=== PATIENT | female | born 1935 | race Caucasian/White ===

== ENCOUNTER → 2016-11-30 | Outpatient (CLI) | payer MEDICARE, OTHER ==
[2016-11-30 09:30] LABS: ABSOLUTE EOSINOPHILS # (AUTO) 0.3 10^3/uL (0.0-0.6); ABSOLUTE LYMPHOCYTES (AUTO) 1.6 10^3/uL (0.5-4.7); ABSOLUTE MONOCYTES (AUTO) 0.4 10^3/uL (0.1-1.4); ABSOLUTE NEUT (AUTO) 4.5 10^3/uL (1.7-8.2); BASOPHILS % (AUTO) 0.4 % (0-2); EOSINOPHILS % (AUTO) 3.8 % (0-6); HEMATOCRIT 41.7 % (36.0-47.0); HGB HCT DIFFERENCE 0.3; LYMPHOCYTES % (AUTO) 23.7 % (13-45); MEAN CORPUSCULAR HEMOGLOBIN 31.9 pg (27.0-33.4); MEAN CORPUSCULAR HGB CONC 33.6 g/dL (32.0-36.0); MEAN CORPUSCULAR VOLUME 95 fl (80-97); MONOCYTES % (AUTO) 5.7 % (3-13); RED CELL DISTRIBUTION WIDTH 12.5 % (11.5-14.0); SEGMENTED NEUTROPHILS % (AUTO) 66.4 % (42-78); WHITE BLOOD COUNT 6.7 10^3/uL (4.0-10.5)
[2016-11-30 09:52] LABS: ALANINE AMINOTRANSFERASE 26 U/L (9-52); ALBUMIN 4.3 g/dL (3.5-5.0); ALKALINE PHOSPHATASE 91 U/L (38-126); ANION GAP 12 (5-19); ASPARTATE AMINO TRANSFERASE 21 U/L (14-36); BLOOD UREA NITROGEN 17 mg/dL (7-20); CALCIUM 9.5 mg/dL (8.4-10.2); CARBON DIOXIDE 31 mmol/L (22-30); CHLORIDE 99 mmol/L (98-107); CREATININE RESULT 0.96 mg/dL (0.52-1.25); GLUCOSE 217 mg/dL (75-110); POTASSIUM 4.2 mmol/L (3.6-5.0); SODIUM 142.4 mmol/L (137-145)
[2016-11-30 09:53] LABS: BILIRUBIN,TOTAL 0.9 mg/dL (0.2-1.3); CHOLESTEROL 204.63 mg/dL (0-200); Direct HDL 83 mg/dL (>40); TOTAL PROTEIN 7.3 g/dL (6.3-8.2); TRIGLYCERIDES 148 mg/dL (<150)
[2016-11-30 10:04] LABS: DIRECT LDL 104 mg/dL (<100)
== END ==
LOC: OD 08:07
PROVIDERS: ATTEND Internal Medicine
DX: E11.9 Type 2 diabetes mellitus without complications (principal); I10 Essential (primary) hypertension; I25.10 Atherosclerotic heart disease of native coronary artery without angina pectoris; E03.9 Hypothyroidism, unspecified; E78.5 Hyperlipidemia, unspecified
CPT/HCPCS: 36415; 80053; 80061; 83036; 84443; 85025

== ENCOUNTER 2016-12-12 08:07 | Emergency (ER) | payer MEDICARE, OTHER ==
--- NOTE | 2016-12-12 08:46 | ER Document Report ---
ED General - General Chief Complaint: Weakness Stated Complaint: WEAKNESS Mode of Arrival: Wheelchair Information source: Patient, Relative Notes: 81 yr old female presents with complaints of generalized weakness, chills and cough over the past 3 days. Grandson had URI, pt notes she feels weak and fell 2 days ago. denies any fevers TRAVEL OUTSIDE OF THE [place] IN LAST 30 DAYS: No - HPI Onset: Last week Onset/Duration: Persistent Quality of pain: No pain Severity: Mild Pain Level: Denies Associated symptoms: Body/muscle aches, Chills, Nonproductive cough Exacerbated by: Denies Relieved by: Denies Similar symptoms previously: No Recently seen / treated by doctor: No - Related Data Allergies/Adverse Reactions: codeine [Codeine] Allergy (Verified 12/12/16 08:20) levofloxacin [From Levaquin] Allergy (Verified 12/12/16 08:20) Sulfa (Sulfonamide Antibiotics) Allergy (Verified 12/12/16 08:20) Past Medical History - Social History Smoking Status: Never Smoker Cigarette use (# per day): No Chew tobacco use (# tins/day): No Smoking Education Provided: No Frequency of alcohol use: None Drug Abuse: None Family History: Reviewed & Not Pertinent Patient has suicidal ideation: No Patient has homicidal ideation: No - Past Medical History Cardiac Medical History: Reports: Hx Hypercholesterolemia, Hx Hypertension Endocrine Medical History: Reports: Hx Diabetes Mellitus Type 2 Renal/ Medical History: Denies: Hx Peritoneal Dialysis GI Medical History: Reports: Hx Gastroesophageal Reflux Disease Past Surgical History: Reports: Hx Appendectomy, Hx Cholecystectomy, Hx Hysterectomy - Immunizations Hx Diphtheria, Pertussis, Tetanus Vaccination: Yes Hx Pneumococcal Vaccination: 11/27/08 Review of Systems - Review of Systems Notes: REVIEW OF SYSTEMS: CONSTITUTIONAL : Admits to chills recent illness EENT: Denies eye, ear, throat, or mouth pain or symptoms. Denies nasal or sinus congestion or discharge. Denies throat, tongue, or mouth swelling or difficulty swallowing. CARDIOVASCULAR: Denies chest pain. Denies palpitations or racing or irregular heart beat. Denies ankle edema. RESPIRATORY: Admits to cough GASTROINTESTINAL: Denies abdominal pain or distention. Denies nausea, vomiting , or diarrhea. Denies blood in vomitus, stools, or per rectum. Denies black, tarry stools. Denies constipation. GENITOURINARY: Denies difficulty urinating, painful urination, burning, frequency, blood in urine, or discharge. FEMALE GENITOURINARY: Denies vaginal bleeding, heavy or abnormal periods, irregular periods. Denies vaginal discharge or odor. MUSCULOSKELETAL: Denies back or neck pain or stiffness. Denies joint pain or swelling. SKIN: Denies rash, lesions or sores. HEMATOLOGIC : Denies easy bruising or bleeding. LYMPHATIC: Denies swollen, enlarged glands. NEUROLOGICAL: Admits to generalized weakness PSYCHIATRIC: Denies anxiety or stress. Denies depression, suicidal ideation, or homicidal ideation. ALL OTHER SYSTEMS REVIEWED AND NEGATIVE. Dictation was performed using [employer] voice recognition software PHYSICAL EXAMINATION: GENERAL: Well-appearing, well-nourished and in no acute distress for stated age HEAD: Atraumatic, normocephalic. EYES: Pupils equal round and reactive to light, extraocular movements intact, conjunctiva are normal. ENT: Nares patent, oropharynx clear without exudates. Moist mucous membranes. NECK: Normal range of motion, supple without lymphadenopathy LUNGS: Breath sounds clear to auscultation bilaterally and equal. No wheezes rales or rhonchi. HEART: Regular rate and rhythm without murmurs ABDOMEN: Soft, nontender, nondistended abdomen. No guarding, no rebound. No masses appreciated. Female : deferred Musculoskeletal: Normal range of motion, no pitting or edema. No cyanosis. NEUROLOGICAL: Cranial nerves grossly intact. Normal speech, normal gait. Normal sensory, motor exams PSYCH: Normal mood, normal affect. SKIN: Warm, Dry, normal turgor, no rashes or lesions noted. Physical Exam - Vital signs Vitals: Temp Pulse Resp BP Pulse Ox 97.4 F 48 L 20 136/58 H 97 12/12/16 08:16 12/12/16 08:16 12/12/16 08:16 12/12/16 08:16 12/12/16 08:16 Course - Re-evaluation Re-evalutation: 12/12/16 08:46 Lab work imaging are pending at this time, patient vital signs to know mild bradycardia but otherwise blood pressure is stable 12/12/16 09:43 Lab work had appeared normal except troponin did come back quite elevated at 2.28, EKG has been immediately ordered. This was unexpected given the patient' s presenting complaint of just cough 12/12/16 10:04 ekg notes no acute abnormalities, pt t obe started on heparin [facility] paged 12/12/16 10:05 12/12/16 10:27 dr rodriguez aceepts on behalf of Dr gar 12/12/16 10:29 12/12/16 12:59 pt transport is here, pt is stable and ready for transfer - Vital Signs Vital signs: Temp Pulse Resp BP Pulse Ox 97.4 F 48 L 13 128/92 H 96 12/12/16 08:16 12/12/16 08:16 12/12/16 12:46 12/12/16 12:46 12/12/16 12:46 - Laboratory Result Diagrams: 12/12/16 08:50 12/12/16 08:50 Laboratory results interpreted by me: 12/12/16 12/12/16 12/12/16 08:50 08:50 08:50 Plt Count 124 L Sodium 134.8 L BUN 26 H Creatinine 1.26 H Est GFR ( Amer) 49 L Est GFR (Non-Af Amer) 41 L Glucose 158 H AST 60 H Creatine Kinase 141 H NT-Pro-B Natriuret Pep 1410 H Total Protein 6.2 L Albumin 3.3 L - Diagnostic Test Radiology reviewed: Image reviewed, Reports reviewed - EKG Interpretation by Me EKG shows normal: Sinus rhythm, [place], Intervals, QRS Complexes When compared to previous EKG there are: No significant change, Changes noted, Previous EKG unavailable Critical Care Note - Critical Care Note Total time excluding time spent on procedures (mins): 37 Discharge - Discharge Condition: Good Disposition: [facility] Referrals: HELENE BOWEN MD [Primary Care Provider] - Follow up as needed
[2016-12-12 09:01] LABS: ABSOLUTE EOSINOPHILS # (AUTO) 0.1 10^3/uL (0.0-0.6); ABSOLUTE LYMPHOCYTES (AUTO) 1.2 10^3/uL (0.5-4.7); ABSOLUTE MONOCYTES (AUTO) 0.4 10^3/uL (0.1-1.4); ABSOLUTE NEUT (AUTO) 3.1 10^3/uL (1.7-8.2); BASOPHILS % (AUTO) 0.4 % (0-2); EOSINOPHILS % (AUTO) 2.6 % (0-6); HEMATOCRIT 38.6 % (36.0-47.0); HGB HCT DIFFERENCE 0.4; LYMPHOCYTES % (AUTO) 24.6 % (13-45); MEAN CORPUSCULAR HEMOGLOBIN 31.9 pg (27.0-33.4); MEAN CORPUSCULAR HGB CONC 33.6 g/dL (32.0-36.0); MEAN CORPUSCULAR VOLUME 95 fl (80-97); MONOCYTES % (AUTO) 8.6 % (3-13); RED BLOOD COUNT 4.07 10^6/uL (3.72-5.28); RED CELL DISTRIBUTION WIDTH 12.8 % (11.5-14.0); SEGMENTED NEUTROPHILS % (AUTO) 63.8 % (42-78); WHITE BLOOD COUNT 4.8 10^3/uL (4.0-10.5)
[2016-12-12 09:21] LABS: ARTERIAL BLOOD BASE EXCESS -1.4 mmol/L; ARTERIAL BLOOD O2 SATURATION 97.3 % (94-98)
[2016-12-12 09:23] LABS: ALANINE AMINOTRANSFERASE 32 U/L (9-52); ALBUMIN 3.3 g/dL (3.5-5.0); ALKALINE PHOSPHATASE 64 U/L (38-126); ANION GAP 10 (5-19); ASPARTATE AMINO TRANSFERASE 60 U/L (14-36); BILIRUBIN,TOTAL 0.4 mg/dL (0.2-1.3); BLOOD UREA NITROGEN 26 mg/dL (7-20); CALCIUM 8.4 mg/dL (8.4-10.2); CARBON DIOXIDE 26 mmol/L (22-30); CHLORIDE 99 mmol/L (98-107); CREATINE KINASE 141 U/L (30-135); CREATININE RESULT 1.26 mg/dL (0.52-1.25); GLUCOSE 158 mg/dL (75-110); POTASSIUM 3.8 mmol/L (3.6-5.0); SODIUM 134.8 mmol/L (137-145); TOTAL PROTEIN 6.2 g/dL (6.3-8.2)
[2016-12-12] MEDS ORDERED: NORMAL SALINE 1000 ML 1,000 ML IV ONE (09:31)
[2016-12-12 09:35] LABS: CREATINE KINASE MB 3.21 ng/mL (<4.55)
[2016-12-12 09:41] LABS: TROPONIN I 2.28 ng/mL
[2016-12-12] MEDS ORDERED: ASPIRIN 325 MG TABLET PO ONE (09:42)
[2016-12-12] MEDS ORDERED: HEPARIN SOD (PORCINE) 1,000 UNIT/ML 10 ML VIAL IV ONE (10:59)
[2016-12-12] MEDS ORDERED: HEPARIN SODIUM,PORCINE/D5W 250 ML IV PRN (10:59)
[2016-12-12] MEDS ORDERED: HEPARIN SOD (PORCINE) 1,000 UNIT/ML 10 ML VIAL IV PRN (10:59)
--- NOTE | 2016-12-12 12:15 | EKG REPORT ---
SEVERITY:- ABNORMAL ECG - JUNCTIONAL ESCAPE RHYTHM NONSPECIFIC T ABNORMALITIES, DIFFUSE LEADS : Confirmed by: Huy Fierro MD 12-Dec-2016 12:14:18
[2016-12-12 12:51] VITALS: BP 128/92
== END 2016-12-12 12:51 | disposition short-term general hospital (02) ==
LOC: ER 08:07
DX: I21.4 Non-ST elevation (NSTEMI) myocardial infarction (principal); I10 Essential (primary) hypertension; R53.1 Weakness; E11.9 Type 2 diabetes mellitus without complications; R05 Cough; R68.83 Chills (without fever); Z91.81 History of falling; M79.1 Myalgia; Z88.5 Allergy status to narcotic agent; Z88.1 Allergy status to other antibiotic agents; Z88.2 Allergy status to sulfonamides
CPT/HCPCS: 93005; 99285; 96361; 96365; 96366; 36415; 82553; 82803; 82550; 85025; 80053; 84484; 83605; 87804; 83880; 71020; 93010; J1644 ×2; A9270; J7030

== ENCOUNTER 2017-03-23 10:07 | Emergency (ER) | payer MEDICARE, OTHER ==
--- NOTE | 2017-03-23 10:29 | ER Document Report ---
ED Neck/Back Problem - General Time seen by provider: 10:25 Mode of Arrival: Wheelchair Information source: Patient, Relative TRAVEL OUTSIDE OF THE [place] IN LAST 30 DAYS: No - HPI Patient complains to provider of: Pain, Neck, Upper back Onset: Other - see HPI note Similar symptoms previously: No Recently seen / treated by doctor: No - General Chief Complaint: Neck and Upper Back Pain Stated Complaint: CHEST PAIN Notes: Patient is an 81-year-old female presenting to the emergency department for pain across her shoulders and back that goes up into her neck. Patient's pain started a few days ago. Patient states her pain is stiff and sore. Patient was concerned that it was related to her heart and she had a nitroglycerin at 9: 00 this morning. Patient denies any shortness of breath. Patient's family member states that this patient always sleeps on the couch and has recently had increased tiredness. Patient does have a cardiac history of 2 stents placed in November. (JOSE MANUEL CALLAHAN) - Related Data Allergies/Adverse Reactions: codeine [Codeine] Allergy (Verified 03/23/17 10:25) levofloxacin [From Levaquin] Allergy (Verified 03/23/17 10:25) Past Medical History - General Information source: Patient - Social History Smoking Status: Unknown if Ever Smoked Chew tobacco use (# tins/day): No Frequency of alcohol use: None Drug Abuse: None Family History: None Patient has suicidal ideation: No Patient has homicidal ideation: No - Past Medical History Cardiac Medical History: Reports: Hx Hypercholesterolemia, Hx Hypertension Endocrine Medical History: Reports: Hx Diabetes Mellitus Type 2 GI Medical History: Reports: Hx Gastroesophageal Reflux Disease Past Surgical History: Reports: Hx Appendectomy, Hx Cardiac Surgery - stents x2 , Hx Cholecystectomy, Hx Hysterectomy - Immunizations Hx Diphtheria, Pertussis, Tetanus Vaccination: Yes Hx Pneumococcal Vaccination: 11/27/08 Review of Systems - Review of Systems Constitutional: No symptoms reported EENT: No symptoms reported Cardiovascular: No symptoms reported Respiratory: No symptoms reported Gastrointestinal: No symptoms reported Genitourinary: No symptoms reported Female Genitourinary: No symptoms reported Musculoskeletal: See HPI, Back pain, Neck pain Skin: No symptoms reported Hematologic/Lymphatic: No symptoms reported Neurological/Psychological: No symptoms reported -: Yes All other systems reviewed and negative Physical Exam - Vital signs Interpretation: Hypertensive - General General appearance: Appears well, Alert In distress: Mild - HEENT Head: Normocephalic, Atraumatic Eyes: Normal Pupils: PERRL Mucous membranes: Moist Neck: Other - para cervical tenderness; reproducible tenderness with movement of neck - Respiratory Respiratory status: No respiratory distress Chest status: Nontender Breath sounds: Normal Chest palpation: Normal - Cardiovascular Rhythm: Regular Heart sounds: Normal auscultation Murmur: No - Abdominal Inspection: Normal Distension: No distension Bowel sounds: Normal Tenderness: Nontender Organomegaly: No organomegaly - Back Back: Normal, Tender - parathoracic tenderness - Extremities General upper extremity: Normal inspection, Normal ROM, Normal strength General lower extremity: Normal inspection, Normal ROM, Normal strength - on - Neurological Neuro grossly intact: Yes Cognition: Normal Orientation: AAOx4 Andres Coma Scale Eye Opening: Spontaneous Andres Coma Scale Verbal: Oriented [place] Coma Scale Motor: Obeys Commands Andres Coma Scale Total: 15 Speech: Normal - Psychological Associated symptoms: Normal affect, Normal mood - Skin Skin Temperature: Warm Skin Moisture: Dry Course - Re-evaluation Re-evalutation: 03/23/17 10:33 Patient presents with a four-day history of paracervical parathoracic muscle tenderness she woke up one morning sleeping on the couch she's had trouble moving her neck in either direction. No injury but she has been sleeping on the couch. She denies any headache blurred vision double vision chest pain pressure or exertional chest pain dyspnea on exertion abdominal pain numbness tingling weakness or loss of bowel or bladder function. Patient was just concerned because she had stents placed recently nothing about her history and physical is consistent with anything related to her heart. EKG looks fine here. This is reproducible to touch movement and position even according to the patient. Clinical and get her started on Robaxin heat massage follow-up primary care physician in one to 2 days and discussed reasons Christiandia return sooner 03/23/17 10:50 03/23/17 10:51 (VILLA VILLARRAEL) - Vital Signs Vital signs: Temp Pulse Resp BP Pulse Ox 98 F 72 18 192/66 H 99 03/23/17 10:11 03/23/17 10:11 03/23/17 10:11 03/23/17 10:11 03/23/17 10:11 - EKG Interpretation by Me Additional EKG results interpreted by me: 03/23/17 10:36 EKG interpreted by myself to reveal a normal sinus rhythm at [address] segment elevation or depression (VILLA VILLARREAL) Discharge - Discharge Clinical Impression: acute cervical thoracic strain Condition: Stable Disposition: HOME, SELF-CARE Additional Instructions: Muscle Strain You have strained a muscle -- torn the fibers within the muscle. This often occurs with strenuous exertion, or during an injury that suddenly stretches the muscle. The seriousness of a strain varies. Some strains heal within days, others cause problems for months. X-rays cannot show a muscle strain. X-rays are taken only if symptoms suggest that a fracture could be present. The usual treatment of a muscle strain is rest and ice packs. Sometimes, a sling, splint, or crutches may be necessary to rest the muscle. The muscle can be used again once pain subsides. Severe strains require a special exercise and stretching program to prevent permanent stiffness and disability. Your doctor will advise you if this will be necessary. Call the doctor immediately if pain or swelling becomes severe, or if numbness or discoloration develop. Follow-up with your primary care physician one to 2 days return for increasing worsening or new symptoms Prescriptions: Methocarbamol [Robaxin 500 mg Tablet] 500 mg PO BID #12 tablet Forms: Elevated Blood Pressure Scribe Attestation: 03/23/17 10:35 I personally performed the services described in the documentation reviewed the documentation recorded by my scribe in my presence and it accurately and completely records my words and actions (VILLA VILLARREAL) Scribe Documentation - Scribe Written by Asad:: Jose Manuel Callahan 03/23/17 10:50 acting as scribe for :: Connor
[2017-03-23 11:32] VITALS: BP 204/61
--- NOTE | 2017-03-23 14:20 | EKG REPORT ---
SEVERITY:- BORDERLINE ECG - SINUS RHYTHM PROBABLE LEFT ATRIAL ABNORMALITY LVH : Confirmed by: Vern Menendez 23-Mar-2017 14:19:24
== END 2017-03-23 11:25 | disposition home or self-care (01) ==
LOC: ER 10:07
DX: S16.1XXA Strain of muscle, fascia and tendon at neck level, initial encounter (principal); S29.012A Strain of muscle and tendon of back wall of thorax, initial encounter; M54.2 Cervicalgia; M54.6 Pain in thoracic spine; R07.9 Chest pain, unspecified; X58.XXXA Exposure to other specified factors, initial encounter
CPT/HCPCS: 93005; 93010; 99284

== ENCOUNTER 2017-04-09 19:39 | Emergency (ER) | payer MEDICARE, OTHER ==
[2017-04-09] MEDS ORDERED: EPINEPHRINE INJ 1 MG/10 ML DISP.SYRIN ONE (19:54)
[2017-04-09] MEDS ORDERED: EPINEPHRINE INJ/PF 1 MG/1 ML AMPULE ONE (19:54)
--- NOTE | 2017-04-09 19:59 | ER Document Report ---
ED General - General Chief Complaint: Possible allergic reaction Stated Complaint: POSSIBLE ALLERGIC REACTION Time Seen by Provider: 04/09/17 19:55 Notes: Patient is an 81-year-old female with a past history of hypertension currently treated with lisinopril who presents with acute onset of progressively worsening swelling of her lips. States it is mostly located to the right lower lip. Notes that the swelling progressed for approximately the first one hour but has not advanced since that time. Denies any difficulty breathing, swallowing, or stridor. No history of similar symptoms in the past. She states she's been on lisinopril for at least the past 3-4 years. She has not contacted her primary care doctor regarding today's concerns. She has not noted anything seems to improve or worsen her symptoms. TRAVEL OUTSIDE OF THE [place] IN LAST 30 DAYS: No - Related Data Allergies/Adverse Reactions: codeine [Codeine] Allergy (Verified 03/23/17 10:25) levofloxacin [From Levaquin] Allergy (Verified 03/23/17 10:25) Past Medical History - General Information source: Patient - Social History Smoking Status: Never Smoker Frequency of alcohol use: None Drug Abuse: None Lives with: Spouse/Significant other Family History: Reviewed & Not Pertinent - Past Medical History Cardiac Medical History: Reports: Hx Hypercholesterolemia, Hx Hypertension Endocrine Medical History: Reports: Hx Diabetes Mellitus Type 2 Renal/ Medical History: Denies: Hx Peritoneal Dialysis GI Medical History: Reports: Hx Gastroesophageal Reflux Disease Past Surgical History: Reports: Hx Appendectomy, Hx Cardiac Surgery - stents x2 , Hx Cholecystectomy, Hx Hysterectomy - Immunizations Hx Diphtheria, Pertussis, Tetanus Vaccination: Yes Hx Pneumococcal Vaccination: 11/27/08 Review of Systems - Review of Systems Notes: Constitutional: Negative for fever. HENT: Negative for sore throat. Eyes: Negative for visual changes. Cardiovascular: Negative for chest pain. Respiratory: Negative for shortness of breath. Gastrointestinal: Negative for abdominal pain, vomiting or diarrhea. Genitourinary: Negative for dysuria. Musculoskeletal: Negative for back pain. Skin: Negative for rash. Neurological: Negative for headaches, weakness or numbness. 10 point ROS negative except as marked above and in HPI. Physical Exam - Vital signs Vitals: Pulse Ox 97 04/09/17 19:59 Interpretation: Normal Notes: PHYSICAL EXAMINATION: GENERAL: Well-appearing, well-nourished and in no acute distress. HEAD: Atraumatic, normocephalic. EYES: Pupils equal round and reactive to light, extraocular movements intact, sclera anicteric, conjunctiva are normal. ENT: There is swelling of the upper and lower lips. No tongue swelling. nares patent, oropharynx widely patent. Moist mucous membranes. No stridor NECK: Normal range of motion, supple without lymphadenopathy LUNGS: Breath sounds clear to auscultation bilaterally and equal. No wheezes rales or rhonchi. HEART: Regular rate and rhythm without murmurs ABDOMEN: Soft, nontender, normoactive bowel sounds. No guarding, no rebound. No masses appreciated. EXTREMITIES: Normal range of motion, no pitting or edema. No cyanosis. NEUROLOGICAL: No focal neurological deficits. Moves all extremities spontaneously and on command. PSYCH: Normal mood, normal affect. SKIN: Warm, Dry, normal turgor, no rashes or lesions noted. Course - Re-evaluation Re-evalutation: 04/09/17 19:58 Patient presents with angioedema of the lips secondary to lisinopril. No oropharyngeal involvement. Airway patent. Phonation normal. Able to handle secretions. Tolerating oral intake without difficulty. Patient was observed and did not develop any progression of the swelling or any evidence of airway occlusion. They have been educated at length about the importance of avoiding ACEi and ARBs. At this time will discharge with return precautions and follow- up recommendations. Verbal discharge instructions given a the bedside and opportunity for questions given. Medication warnings reviewed. Patient is in agreement with this plan and has verbalized understanding of return precautions and the need for primary care follow-up in the next 24-72 hours. 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 This is related to a medication you are taking called lisinopril. You may never take this medication again as you could have a recurrence of an even more severe version of what brought you to to the emergency department today. Please have your primary care physician for recommendations for alternative blood pressure medications. Your swelling will resolve over the next several days. Return to emergency room immediately if you have worsening swelling, shortness of breath, difficulty swallowing, noticed a change in your voice, or have any other symptoms that are of concern to you. Referrals: HELENE BOWEN MD [Primary Care Provider] - Follow up as needed
[2017-04-09 22:16] VITALS: BP 101/63
== END 2017-04-09 22:16 | disposition home or self-care (01) ==
LOC: ER 19:39
DX: T78.3XXA Angioneurotic edema, initial encounter (principal); E11.9 Type 2 diabetes mellitus without complications; I10 Essential (primary) hypertension; Z79.899 Other long term (current) drug therapy; Z88.5 Allergy status to narcotic agent; Z88.1 Allergy status to other antibiotic agents; Z98.61 Coronary angioplasty status
CPT/HCPCS: 99283

== ENCOUNTER 2017-04-11 10:14 | Inpatient (IN) | payer MEDICARE, OTHER ==
[2017-04-11] MEDS ORDERED: NORMAL SALINE 1000 ML 250 ML IV ONE (10:38)
[2017-04-11] MEDS ORDERED: METHYLPREDNISOLONE INJ 125 MG/2 ML SDV IV ONE (10:39)
[2017-04-11] MEDS ORDERED: HYDROXYZINE PAMOATE 25 MG CAPSULE PO ONE (10:39)
--- NOTE | 2017-04-11 10:46 | ER Document Report ---
ED General - General Chief Complaint: Nausea/Vomiting Stated Complaint: RASH/VOMITING Time Seen by Provider: 04/11/17 10:35 Mode of Arrival: Ambulatory Information source: Patient, Relative Cannot obtain history due to: Other - Limited due to dementia TRAVEL OUTSIDE OF THE [place] IN LAST 30 DAYS: No - HPI Notes: 81-year-old female presents with pruritic rash now for approximately 3 days. She was seen 2 days ago has been taking Benadryl rash is persisting. It is been urticarial in nature very pruritic despite taking Benadryl pretty much for the last 2 days. She does have a history of diabetes and cardiac stents frequent UTIs and has been on Bactrim but after it ran out there was an area and she was placed on Keflex. She has had it before without any problems. She has had a little facial swelling but is not affected her airway. She denies any swallowing or breathing difficulty. No tongue swelling. She is currently on an WALTER inhibitor as well. She has had some mild vomiting and diarrhea the last day but family was not with her and cannot quantify this. Family also reports she has had fairly significant decrease in by mouth intake. She does have some low back pain that sometimes indicates a urinary tract infection. There is been no fever. She denies any chest or abdominal discomfort - Related Data Allergies/Adverse Reactions: codeine [Codeine] Allergy (Verified 04/11/17 10:20) levofloxacin [From Levaquin] Allergy (Verified 04/11/17 10:20) Past Medical History - General Information source: Relative - Social History Smoking Status: Unknown if Ever Smoked Family History: Reviewed & Not Pertinent Patient has suicidal ideation: No Patient has homicidal ideation: No - Past Medical History Cardiac Medical History: Reports: Hx Hypercholesterolemia, Hx Hypertension Endocrine Medical History: Reports: Hx Diabetes Mellitus Type 2 Renal/ Medical History: Denies: Hx Peritoneal Dialysis GI Medical History: Reports: Hx Gastroesophageal Reflux Disease Past Surgical History: Reports: Hx Appendectomy, Hx Cardiac Surgery - stents x2 , Hx Cholecystectomy, Hx Hysterectomy - Immunizations Hx Diphtheria, Pertussis, Tetanus Vaccination: Yes Hx Pneumococcal Vaccination: 11/27/08 Review of Systems - Review of Systems -: Yes All other systems reviewed and negative Physical Exam - Vital signs Vitals: Temp Pulse Resp BP Pulse Ox 98.0 F 79 18 88/43 L 93 04/11/17 10:22 04/11/17 10:22 04/11/17 10:22 04/11/17 10:22 04/11/17 10:22 Interpretation: Hypotensive - 88/53 - Notes Notes: GENERAL: VS as per nursing doc. Well-appearing, well-nourished and in no acute distress. HEAD: Atraumatic, normocephalic. EYES: Pupils equal round and reactive to light, extraocular movements intact, sclera anicteric, no conjunctival injection or discharge. There is very mild periorbital edema noted inferiorly ENT: Nares patent, oropharynx clear without exudates, moist mucous membranes. Airway is patent without oropharyngeal edema noted NECK: Normal range of motion, supple without lymphadenopathy. LUNGS: Breath sounds clear to auscultation bilaterally and equal. No wheezes rales or rhonchi. No stridor HEART: Regular rate and rhythm faint systolic murmur noted ABDOMEN: Soft, non-tender, normoactive bowel sounds. No guarding, no rebound. No masses appreciated. No [place] sign. BACK: No CVA tenderness. EXTREMITIES: Normal range of motion, no calf tenderness. NEUROLOGICAL: Cranial nerves grossly intact. Normal speech. Normal sensory and motor exams. No gross cerebellar abnormalities. Fairly poor recall PSYCH: Normal mood, normal affect. SKIN: Warm, dry. Fairly diffuse blanching urticarial rash noted predominantly over the extremities and torso. No facial urticaria are noted though it does extend to the neck. Course - Re-evaluation Re-evalutation: 04/11/17 12:49 Discussed findings with the patient and family. She has improved with 1 L of fluid still slightly hypotensive particularly with her history of hypertension. We will continue fluids and the patient will be admitted to [facility] - Vital Signs Vital signs: Temp Pulse Resp BP Pulse Ox 98.0 F 79 18 110/41 L 96 04/11/17 10:22 04/11/17 10:22 04/11/17 10:22 04/11/17 12:01 04/11/17 12:21 - Laboratory Result Diagrams: 04/11/17 10:45 04/11/17 10:45 Laboratory results interpreted by me: 04/11/17 04/11/17 04/11/17 10:45 10:45 11:50 Hgb 15.8 H Seg Neutrophils % 79.6 H Monocytes % 2.9 L Sodium 133.1 L Chloride 96 L BUN 27 H Creatinine 1.87 H Est GFR ( Amer) 31 L Est GFR (Non-Af Amer) 26 L Glucose 156 H Total Bilirubin 1.6 H Direct Bilirubin 0.5 H Urine Glucose (UA) 50 H - Consults Dr. Bowen Time consulted: 12:47 - Will admit it IMC/Full admit. Discharge - Discharge Clinical Impression: Vomiting and diarrhea, Dehydration, Acute kidney injury, Urticaria Condition: Fair Disposition: ADMITTED INPATIENT Admitting Provider: Stephanie Unit Admitted: I[facility]U Referrals: HELENE BOWEN MD [Primary Care Provider] - Follow up as needed
[2017-04-11 11:10] LABS: ABSOLUTE LYMPHOCYTES (AUTO) 1.1 10^3/uL (0.5-4.7); ABSOLUTE MONOCYTES (AUTO) 0.2 10^3/uL (0.1-1.4); BASOPHILS % (AUTO) 0.3 % (0-2); EOSINOPHILS % (AUTO) 0.2 % (0-6); HEMATOCRIT 45.6 % (36.0-47.0); HEMOGLOBIN 15.8 g/dL (12.0-15.5); HGB HCT DIFFERENCE 1.8; MEAN CORPUSCULAR HEMOGLOBIN 31.2 pg (27.0-33.4); MEAN CORPUSCULAR HGB CONC 34.5 g/dL (32.0-36.0); MEAN CORPUSCULAR VOLUME 90 fl (80-97); MONOCYTES % (AUTO) 2.9 % (3-13); RED BLOOD COUNT 5.06 10^6/uL (3.72-5.28); RED CELL DISTRIBUTION WIDTH 13.3 % (11.5-14.0); SEGMENTED NEUTROPHILS % (AUTO) 79.6 % (42-78); WHITE BLOOD COUNT 6.3 10^3/uL (4.0-10.5)
[2017-04-11 11:15] LABS: ALANINE AMINOTRANSFERASE 24 U/L (9-52); ALBUMIN 3.5 g/dL (3.5-5.0); ALKALINE PHOSPHATASE 45 U/L (38-126); ANION GAP 13 (5-19); ASPARTATE AMINO TRANSFERASE 24 U/L (14-36); BILIRUBIN,DIRECT 0.5 mg/dL (0.0-0.4); BILIRUBIN,TOTAL 1.6 mg/dL (0.2-1.3); BLOOD UREA NITROGEN 27 mg/dL (7-20); CALCIUM 9.1 mg/dL (8.4-10.2); CARBON DIOXIDE 24 mmol/L (22-30); CHLORIDE 96 mmol/L (98-107); CREATININE RESULT 1.87 mg/dL (0.52-1.25); GLUCOSE 156 mg/dL (75-110); POTASSIUM 4.7 mmol/L (3.6-5.0); SODIUM 133.1 mmol/L (137-145); TOTAL PROTEIN 6.3 g/dL (6.3-8.2)
[2017-04-11 12:15] LABS: APPEARANCE,URINE SLIGHTLY-CLOUDY; BILIRUBIN,URINE NEGATIVE (NEGATIVE); GLUCOSE, URINE 50 mg/dL (NEGATIVE); KETONES,URINE NEGATIVE (NEGATIVE); LEUKOCYTE ESTERASE,URINE NEGATIVE (NEGATIVE); NITRITE,URINE NEGATIVE (NEGATIVE); PROTEIN,URINE NEGATIVE (NEGATIVE); URINE SPECIFIC GRAVITY 1.013; UROBILINOGEN,URINE NEGATIVE mg/dL (<2.0)
[2017-04-11] MEDS ORDERED: NORMAL SALINE 1000 ML 500 ML IV ONE (12:50)
[2017-04-11] MEDS ORDERED: ONDANSETRON 4 MG TAB.RAPDIS PO PRN (15:23)
[2017-04-11] MEDS ORDERED: GLUCAGON,HUMAN RECOMB 1 MG INJ IM PRN (15:27)
[2017-04-11] MEDS ORDERED: HYDROXYZINE HCL 10 MG TABLET PO PRN (15:27)
[2017-04-11] MEDS ORDERED: DEXTROSE 40% GEL 15 GM TUBE PO PRN ×2 (15:27)
[2017-04-11] MEDS ORDERED: DEXTROSE 50%-WATER 25 GM/50 ML DISP.SYRIN IV PRN ×2 (15:27)
[2017-04-11] MEDS ORDERED: CETIRIZINE 10 MG TABLET PO ONE (16:00)
[2017-04-11] MEDS ORDERED: ENOXAPARIN SODIUM INJ 30 MG/0.3 ML DISP.SYRIN SUBCUT ONE (16:30)
[2017-04-11] MEDS: NORMAL SALINE 1000 ML 1,000 ML IV PRN (16:32)
[2017-04-11] MEDS: METHYLPREDNISOLONE INJ 40 MG/1 ML SDV IV SCH (17:18)
--- NOTE | 2017-04-11 17:41 | PDOC H&P ---
History of Present Illness Admission Date/PCP: 04/11/17 15:18 HELENE BOWEN, Patient complains of: The patient comes in complaining of hives and lip swelling which have gotten worse since Monday. The patient states that Monday afternoon she noticed her lip swelling. She came into the emergency room. She has been treated and released home. Apparently the symptoms have gotten progressively worse and she came into the emergency room this morning for further evaluation History of Present Illness: MARIO GAVIRIA is a 81 year old female Past Medical History Cardiac Medical History: Reports: Coronary Artery Disease, Hyperlipidema, Hypertension Neurological Medical History: Reports: Other Endocrine Medical History: Reports: Diabetes Mellitus Type 2, Hypothyroidism GI Medical History: Reports: Gastroesophageal Reflux Disease Psychiatric Medical History: Reports: Dementia Denies: Depression Past Surgical History Past Surgical History: Reports: Appendectomy, Cholecystectomy, Hysterectomy Social History Smoking Status: Unknown if Ever Smoked Frequency of Alcohol Use: None Hx Recreational Drug Use: No Drugs: None Hx Prescription Drug Abuse: No - Advance Directive Resuscitation Status: Full Code Family History Family History: Reviewed & Not Pertinent Parental Family History Reviewed: Yes Children Family History Reviewed: Yes Sibling(s) Family History Reviewed.: Yes Medication/Allergy Home Medications: Aspirin [Aspirin EC] 81 mg PO DAILY 04/11/17 Cephalexin [Cephalexin 500 MG Capsule] 500 mg PO DAILY 04/11/17 Clopidogrel Bisulfate [Plavix 75 mg Tablet] 75 mg PO DAILY 04/11/17 Insulin Glargine,Hum.rec.anlog [Lantus Solostar] 30 units SQ QPM 04/11/17 Levothyroxine Sodium [Synthroid] 125 mcg PO DAILY 04/11/17 Metformin HCl [Glucophage] 1,000 mg PO BID 04/11/17 Metoprolol Tartrate [Lopressor 50 mg Tablet] 50 mg PO Q12 04/11/17 Pantoprazole Sodium [Protonix] 40 mg PO NOON 04/11/17 Rosuvastatin Calcium [Crestor 10 mg Tablet] 10 mg PO QHS 04/11/17 Trospium Chloride [Trospium Chloride ER] 60 mg PO QHS 04/11/17 Allergies/Adverse Reactions: codeine [Codeine] Allergy (Verified 04/11/17 10:20) levofloxacin [From Levaquin] Allergy (Verified 05/16/17 10:20) Review of Systems All systems: as per [facility] Physical Exam Vital Signs: Temp Pulse Resp BP Pulse Ox 98.7 F 78 18 122/91 H 94 04/11/17 14:59 04/11/17 14:59 04/11/17 14:59 04/11/17 14:59 04/11/17 14:59 General appearance: PRESENT: mild distress Head exam: PRESENT: atraumatic Eye exam: PRESENT: conjunctival injection Neck exam: ABSENT: carotid bruit Respiratory exam: PRESENT: clear to auscultation niles Cardiovascular exam: PRESENT: +S1, +S2 Pulses: PRESENT: +1 pedal pulses bilateral Vascular exam: PRESENT: normal capillary refill GI/Abdominal exam: PRESENT: normal bowel sounds, soft Extremities exam: PRESENT: full ROM Musculoskeletal exam: PRESENT: ambulatory Neurological exam: PRESENT: alert, awake Skin exam: PRESENT: urticaria Assessment & Plan - Diagnosis (1) Acute kidney injury Is this a current diagnosis for this admission?: YesPlan: Most probably related to dehydration. We will start IV fluids (2) Dehydration Is this a current diagnosis for this admission?: YesPlan: Start IV fluids (3) Urticaria Is this a current diagnosis for this admission?: YesPlan: Unknown cause. The patient does not remember what she had all what she ate and drank before the symptoms started. We'll start antihistamines and steroids (4) Vomiting and diarrhea Is this a current diagnosis for this admission?: YesPlan: We will use antiemetics (5) Diabetes mellitus Qualifiers: Diabetes mellitus type: type 2 Is this a current diagnosis for this admission?: YesPlan: We'll continue home insulin and start sliding scale since the steroids will increase her glucose (6) Hypothyroidism Is this a current diagnosis for this admission?: YesPlan: Continue current medications (7) Hypertension Is this a current diagnosis for this admission?: YesPlan: We'll continue current treatment
[2017-04-11] MEDS ORDERED: METFORMIN HCL 500 MG TABLET PO SCH (18:00)
[2017-04-11] MEDS: INSULIN GLARGINE,HUM.REC.ANLOG 1,000 UNIT/10 ML UNIT SUBCUT SCH (22:06)
[2017-04-11] MEDS: INSULIN LISPRO 100 UNIT/ML 3 ML VIAL SUBCUT PRN (22:07)
[2017-04-11] MEDS: FAMOTIDINE 20 MG TABLET PO SCH (22:09)
[2017-04-12] MEDS: NORMAL SALINE 1000 ML 1,000 ML IV PRN ×2 (00:10→22:00)
[2017-04-12] MEDS: METHYLPREDNISOLONE INJ 40 MG/1 ML SDV IV SCH ×4 (00:11→18:00)
[2017-04-12] MEDS: ENOXAPARIN SODIUM INJ 30 MG/0.3 ML DISP.SYRIN SUBCUT SCH (08:00)
[2017-04-12] MEDS ORDERED: ENOXAPARIN SODIUM INJ 40 MG/0.4 ML DISP.SYRIN SUBCUT SCH (08:00)
[2017-04-12] MEDS ORDERED: CLOPIDOGREL BISULFATE 75 MG TABLET ONE (09:28)
[2017-04-12] MEDS ORDERED: THYROXINE PO SCH (10:00)
[2017-04-12] MEDS ORDERED: (PENDING PHARMACY ID) (Atenolol [Tenormin] 25 MG) PO SCH (10:00)
[2017-04-12] MEDS: AMLODIPINE BESYLATE 5 MG TABLET PO SCH (10:00)
[2017-04-12] MEDS: FAMOTIDINE 20 MG TABLET PO SCH ×2 (10:00→21:37)
[2017-04-12] MEDS: ATENOLOL 50 MG TABLET PO SCH (10:00)
[2017-04-12] MEDS ORDERED: (PENDING PHARMACY ID) (Felodipine [Felodipine Er] 10 MG) PO SCH (10:00)
[2017-04-12] MEDS: LEVOTHYROXINE SODIUM 0.1 MG TABLET PO SCH (10:00)
[2017-04-12] MEDS ORDERED: LEVOTHYROXINE SODIUM 0.025 MG TABLET PO SCH (10:00)
[2017-04-12] MEDS: LEVOTHYROXINE SODIUM 0.025 MG TABLET PO SCH (10:00)
[2017-04-12] MEDS ORDERED: PREDNISONE 20 MG TABLET ONE (12:29)
--- NOTE | 2017-04-12 16:41 | PROGRESS NOTE E ---
Progress Note NAME: MARIO GAVIRIA : 1935 AGE: 81Y DATE: 04/12/2017 ROOM: 325 SUBJECTIVE: The patient states to feel slightly better. She continues to have recurrence of hives. She has tolerated medications well. She states that the rash and the itching is coming back and it is starting again on her neck. Her lip swelling has improved. She denies any tongue swelling or shortness of breath. OBJECTIVE: NECK: Supple. No JVD. No bruits. SKIN: Diffuse hives in different stages of fading. CHEST: Clear to auscultation and percussion. HEART: S1, S2. RRR. ABDOMEN: Soft. Bowel sounds positive. EXTREMITIES: No edema, cyanosis, or clubbing. NEUROLOGICAL: Nonfocal. LABORATORIES: Labs were reviewed from the labs from [facility]. IMPRESSION: 1. ACUTE RENAL FAILURE. 2. DEHYDRATION. 3. CORONARY ARTERY DISEASE STATUS POST STENT PLACEMENTS. 4. HIVES. 5. ALLERGIC REACTION. 6. ANAPHYLAXIS. 7. HYPOTHYROIDISM. 8. DIABETES MELLITUS. PLAN: 1. Will continue with IV hydration. 2. Will switch from IV steroids to p.o. 3. Will continue with H1 and H2 blockers. 4. Will consider discharge in the morning. DICTATING PHYSICIAN: HELENE BOWEN M.D. [id number] PHY#: [id number] ID: [id number] JOB#: [id number] ACCT: [id number] cc: >
--- NOTE | 2017-04-12 17:18 | EKG REPORT ---
SEVERITY:- BORDERLINE ECG - SINUS RHYTHM PROBABLE LEFT ATRIAL ABNORMALITY : Confirmed by: Smitha Jim MD 12-Apr-2017 09:08:19
[2017-04-12] MEDS: PREDNISONE 20 MG TABLET PO SCH (21:36)
[2017-04-12] MEDS: INSULIN GLARGINE,HUM.REC.ANLOG 1,000 UNIT/10 ML UNIT SUBCUT SCH (21:56)
[2017-04-12] MEDS: INSULIN LISPRO 100 UNIT/ML 3 ML VIAL SUBCUT PRN (21:57)
[2017-04-13] MEDS: NORMAL SALINE 1000 ML 1,000 ML IV PRN (05:07)
[2017-04-13 06:41] LABS: ABSOLUTE LYMPHOCYTES (AUTO) 0.8 10^3/uL (0.5-4.7); ABSOLUTE MONOCYTES (AUTO) 0.3 10^3/uL (0.1-1.4); ABSOLUTE NEUT (AUTO) 5.5 10^3/uL (1.7-8.2); BASOPHILS % (AUTO) 0.2 % (0-2); HEMATOCRIT 36.7 % (36.0-47.0); HGB HCT DIFFERENCE 1.7; LYMPHOCYTES % (AUTO) 12.2 % (13-45); MEAN CORPUSCULAR HEMOGLOBIN 31.3 pg (27.0-33.4); MEAN CORPUSCULAR HGB CONC 34.8 g/dL (32.0-36.0); MEAN CORPUSCULAR VOLUME 90 fl (80-97); MONOCYTES % (AUTO) 4.9 % (3-13); RED BLOOD COUNT 4.09 10^6/uL (3.72-5.28); RED CELL DISTRIBUTION WIDTH 12.7 % (11.5-14.0); SEGMENTED NEUTROPHILS % (AUTO) 82.7 % (42-78); WHITE BLOOD COUNT 6.6 10^3/uL (4.0-10.5)
[2017-04-13 06:48] LABS: HEMOGLOBIN 12.8 g/dL (12.0-15.5)
[2017-04-13 07:01] LABS: ALANINE AMINOTRANSFERASE 27 U/L (9-52); ALBUMIN 3.2 g/dL (3.5-5.0); ALKALINE PHOSPHATASE 47 U/L (38-126); ANION GAP 9 (5-19); ASPARTATE AMINO TRANSFERASE 21 U/L (14-36); BILIRUBIN,DIRECT 0.4 mg/dL (0.0-0.4); BILIRUBIN,TOTAL 0.6 mg/dL (0.2-1.3); BLOOD UREA NITROGEN 26 mg/dL (7-20); CALCIUM 8.8 mg/dL (8.4-10.2); CARBON DIOXIDE 24 mmol/L (22-30); CHLORIDE 108 mmol/L (98-107); CREATININE RESULT 1.08 mg/dL (0.52-1.25); GLUCOSE 128 mg/dL (75-110); MAGNESIUM 1.5 mg/dL (1.6-2.3); SODIUM 140.6 mmol/L (137-145); TOTAL PROTEIN 5.9 g/dL (6.3-8.2)
[2017-04-13] MEDS: ENOXAPARIN SODIUM INJ 30 MG/0.3 ML DISP.SYRIN SUBCUT SCH (07:53)
[2017-04-13] MEDS: AMLODIPINE BESYLATE 5 MG TABLET PO SCH (07:53)
[2017-04-13] MEDS: ATENOLOL 50 MG TABLET PO SCH (07:54)
[2017-04-13 07:57] LABS: ABSOLUTE LYMPHOCYTES (AUTO) 0.6 10^3/uL (0.5-4.7); ABSOLUTE MONOCYTES (AUTO) 0.1 10^3/uL (0.1-1.4); ABSOLUTE NEUT (AUTO) 3.2 10^3/uL (1.7-8.2); BASOPHILS % (AUTO) 0.3 % (0-2); EOSINOPHILS % (AUTO) 0.1 % (0-6); HEMATOCRIT 36.4 % (36.0-47.0); HGB HCT DIFFERENCE 1.7; LYMPHOCYTES % (AUTO) 16.3 % (13-45); MEAN CORPUSCULAR HEMOGLOBIN 31.2 pg (27.0-33.4); MEAN CORPUSCULAR HGB CONC 34.7 g/dL (32.0-36.0); MEAN CORPUSCULAR VOLUME 90 fl (80-97); MONOCYTES % (AUTO) 1.8 % (3-13); RED BLOOD COUNT 4.06 10^6/uL (3.72-5.28); RED CELL DISTRIBUTION WIDTH 12.8 % (11.5-14.0); SEGMENTED NEUTROPHILS % (AUTO) 81.5 % (42-78); WHITE BLOOD COUNT 3.9 10^3/uL (4.0-10.5)
[2017-04-13] MEDS ORDERED: CLOPIDOGREL BISULFATE 75 MG TABLET PO SCH (10:00)
[2017-04-13] MEDS: PREDNISONE 20 MG TABLET PO SCH (10:10)
[2017-04-13] MEDS: FAMOTIDINE 20 MG TABLET PO SCH (10:10)
[2017-04-13] MEDS: LEVOTHYROXINE SODIUM 0.025 MG TABLET PO SCH (10:11)
[2017-04-13] MEDS: LEVOTHYROXINE SODIUM 0.1 MG TABLET PO SCH (10:11)
[2017-04-13 10:58] VITALS: BP 108/47
[2017-04-13 11:18] LABS: HEMOGLOBIN 12.7 g/dL (12.0-15.5)
--- NOTE | 2017-04-13 11:19 | PDOC DISCHARGE SUMMARY ---
General - Admit/Disc Date/PCP Admission Date/Primary Care Provider: 04/11/17 15:18 HELENE BOWEN, Discharge Date: 04/13/17 - Discharge Diagnosis (1) Acute kidney injury Is this a current diagnosis for this admission?: YesSummary: resolved (2) Dehydration Is this a current diagnosis for this admission?: Yes (3) Urticaria Is this a current diagnosis for this admission?: YesSummary: improoved (4) Vomiting and diarrhea Is this a current diagnosis for this admission?: Yes (5) Diabetes mellitus Is this a current diagnosis for this admission?: Yes (6) Hypothyroidism Is this a current diagnosis for this admission?: Yes (7) Hypertension Is this a current diagnosis for this admission?: Yes - Additional Information Resuscitation Status: Full Code Discharge Diet: Diabetic Discharge Activity: Activity As Tolerated Home Medications: Aspirin [Aspirin EC] 81 mg PO DAILY 04/11/17 Cephalexin [Cephalexin 500 MG Capsule] 500 mg PO DAILY 04/11/17 Clopidogrel Bisulfate [Plavix 75 mg Tablet] 75 mg PO DAILY 04/11/17 Insulin Glargine,Hum.rec.anlog [Lantus Solostar] 30 units SQ QPM 04/11/17 Levothyroxine Sodium [Synthroid] 125 mcg PO DAILY 04/11/17 Metformin HCl [Glucophage] 1,000 mg PO BID 04/11/17 Metoprolol Tartrate [Lopressor 50 mg Tablet] 50 mg PO Q12 04/11/17 Pantoprazole Sodium [Protonix] 40 mg PO NOON 04/11/17 Rosuvastatin Calcium [Crestor 10 mg Tablet] 10 mg PO QHS 04/11/17 Trospium Chloride [Trospium Chloride ER] 60 mg PO QHS 04/11/17 Hydroxyzine HCl [Atarax 10 mg Tablet] 10 mg PO Q6HP PRN #60 tablet 04/13/17 Prednisone [Deltasone 20 mg Tablet] 20 mg PO Q12 #30 tablet 04/13/17 History of Present Illness History of Present Illness: MARIO GAVIRIA is a 81 year old female Hospital Course Hospital Course: see dictation Physical Exam Vital Signs: Temp Pulse Resp BP Pulse Ox 97.5 F 73 16 108/47 L 91 L 04/13/17 10:55 04/13/17 10:55 04/13/17 10:55 04/13/17 10:55 04/13/17 10:55 Intake & Output 04/12/17 04/13/17 04/14/17 06:59 06:59 06:59 Intake Total 1590 1400 Output Total 0 625 Balance 1590 775 Weight 74.9 kg 77.4 kg General appearance: PRESENT: no acute distress Head exam: PRESENT: atraumatic Eye exam: PRESENT: conjunctiva pink Neck exam: ABSENT: carotid bruit Respiratory exam: PRESENT: clear to auscultation niles Cardiovascular exam: PRESENT: RRR, +S1, +S2 Pulses: PRESENT: +1 pedal pulses bilateral Vascular exam: PRESENT: normal capillary refill GI/Abdominal exam: PRESENT: normal bowel sounds, soft Extremities exam: PRESENT: full ROM Musculoskeletal exam: PRESENT: ambulatory Neurological exam: PRESENT: alert, awake Results Laboratory Results: 04/13/17 06:21 04/13/17 06:21 04/13/17 04/13/17 06:21 06:21 WBC 6.6 RBC 4.09 Hgb 12.8 D Hct 36.7 MCV 90 MCH 31.3 MCHC 34.8 RDW 12.7 Plt Count 170 Seg Neutrophils % 82.7 H Lymphocytes % 12.2 L Monocytes % 4.9 Eosinophils % 0.0 Basophils % 0.2 Absolute Neutrophils 5.5 Absolute Lymphocytes 0.8 Absolute Monocytes 0.3 Absolute Eosinophils 0.0 Absolute Basophils 0.0 Sodium 140.6 Potassium 4.0 Chloride 108 H Carbon Dioxide 24 Anion Gap 9 BUN 26 H Creatinine 1.08 Est GFR ( Amer) 59 L Est GFR (Non-Af Amer) 49 L Glucose 128 H Calcium 8.8 Magnesium 1.5 L Total Bilirubin 0.6 AST 21 ALT 27 Alkaline Phosphatase 47 Total Protein 5.9 L Albumin 3.2 L Plan Discharge Plan: dc home
[2017-04-13 16:21] LABS: CALCIUM 8.2 mg/dL (8.4-10.2)
[2017-04-13 16:22] LABS: ALBUMIN 2.8 g/dL (3.5-5.0); ANION GAP 9 (5-19); BLOOD UREA NITROGEN 29 mg/dL (7-20); CARBON DIOXIDE 23 mmol/L (22-30); CHLORIDE 101 mmol/L (98-107); CREATININE RESULT 1.44 mg/dL (0.52-1.25); GLUCOSE 209 mg/dL (75-110); POTASSIUM 4.7 mmol/L (3.6-5.0); SODIUM 133.4 mmol/L (137-145)
[2017-04-13 16:23] LABS: ALANINE AMINOTRANSFERASE 22 U/L (9-52); ALKALINE PHOSPHATASE 39 U/L (38-126); ASPARTATE AMINO TRANSFERASE 16 U/L (14-36); BILIRUBIN,DIRECT 0.5 mg/dL (0.0-0.4); BILIRUBIN,TOTAL 0.9 mg/dL (0.2-1.3); MAGNESIUM 1.3 mg/dL (1.6-2.3); TOTAL PROTEIN 5.4 g/dL (6.3-8.2)
== END 2017-04-13 11:21 | disposition home or self-care (01) | DRG 684 ==
LOC: ER 10:14 → EH 13:11 → UNDOADMIN 13:11 → 3W 14:28 → EH 14:28 → 3W 15:18
PROVIDERS: ADMIT Internal Medicine; ATTEND Internal Medicine
DX: N17.9 Acute kidney failure, unspecified (principal); E86.0 Dehydration; I10 Essential (primary) hypertension; I25.10 Atherosclerotic heart disease of native coronary artery without angina pectoris; L50.9 Urticaria, unspecified; E11.9 Type 2 diabetes mellitus without complications; E03.9 Hypothyroidism, unspecified; E78.5 Hyperlipidemia, unspecified; F03.90 Unspecified dementia, unspecified severity, without behavioral disturbance, psychotic disturbance, mood disturbance, and anxiety; K21.9 Gastro-esophageal reflux disease without esophagitis; Z79.82 Long term (current) use of aspirin; Z79.4 Long term (current) use of insulin; Z79.52 Long term (current) use of systemic steroids; Z79.899 Other long term (current) drug therapy; Z90.49 Acquired absence of other specified parts of digestive tract; Z90.710 Acquired absence of both cervix and uterus; Z88.6 Allergy status to analgesic agent; Z88.3 Allergy status to other anti-infective agents; Z95.5 Presence of coronary angioplasty implant and graft; Z87.440 Personal history of urinary (tract) infections
CPT/HCPCS: 36415; 51701; 80053; 81001; 82962; 83735; 84443; 85025; 87086; 93005; 93010; 96361; 96374; 99285; J1650; J1815; J2920; J2930; J7030; J7512

== ENCOUNTER 2017-09-28 10:38 | Inpatient (IN) | payer MEDICARE, OTHER ==
--- NOTE | 2017-09-28 10:45 | ER Document Report ---
ED General - General Stated Complaint: FALL/FACIAL BRUISING Time Seen by Provider: 09/28/17 10:43 Notes: 82-year-old female with a recent CT and stents taking Plavix presents after an unwitnessed fall outside of her home. She does not Remmer what happened but Remmers waking up on the ground. History is limited secondary to her amnesia. Per EMS she was hypertensive and has evidence of head trauma. She denies chest pain or shortness of breath. TRAVEL OUTSIDE OF THE [place] IN LAST 30 DAYS: No - Related Data Allergies/Adverse Reactions: codeine [Codeine] Allergy (Verified 09/28/17 11:53) levofloxacin [From Levaquin] Allergy (Verified 09/28/17 11:53) Past Medical History - Social History Smoking Status: Never Smoker Family History: Reviewed & Not Pertinent - Past Medical History Cardiac Medical History: Reports: Hx Coronary Artery Disease, Hx Hypercholesterolemia, Hx Hypertension Endocrine Medical History: Reports: Hx Diabetes Mellitus Type 2, Hx Hypothyroidism Renal/ Medical History: Denies: Hx Peritoneal Dialysis GI Medical History: Reports: Hx Gastroesophageal Reflux Disease Psychiatric Medical History: Reports: Hx Dementia Denies: Hx Depression Past Surgical History: Reports: Hx Appendectomy, Hx Cardiac Surgery - stents x2 , Hx Cholecystectomy, Hx Hysterectomy - Immunizations Hx Diphtheria, Pertussis, Tetanus Vaccination: Yes Hx Pneumococcal Vaccination: 11/27/08 Review of Systems - Review of Systems Notes: REVIEW OF SYSTEMS PHYSICAL EXAMINATION General: No acute distress, well-nourished Head: Right infraorbital ecchymosis, normocephalic ENT: Mouth normal, oropharynx moist, no exudates or tonsillar enlargement Eyes: Conjunctiva normal, pupils equal, lids normal Neck: No JVD, supple, no guarding CVS: Normal rate, regular rhythm, no murmurs Resp: No resp distress, equal and normal breath sounds bilaterally GI: Nondistended, soft, no tenderness to palpation, no rebound or guarding Ext: No deformities, no edema, normal range of motion in upper and lower ext Back: No CVA or midline TTP Skin: No rash, warm Lymphatic: No lymphadeopathy noted Neuro: Awake, alert. Face symmetric. GCS 15. -: Yes ROS unobtainable due to patient's medical condition Course - Re-evaluation Re-evalutation: 09/28/17 10:45 82-year-old female with cardiac history presents with unwitnessed fall with evidence of facial trauma. She is in her neurologic baseline. She is hypertensive. Differential includes syncope versus mechanical fall with concussion versus bleed. Given her cardiac history, I will assume syncope. Plan: CT head, cardiac monitoring EKG and labs including troponin. Eventual admission for observation. - Laboratory Result Diagrams: 09/28/17 11:38 09/28/17 11:38 Laboratory results interpreted by me: 09/28/17 11:38 Plt Count 144 L - Diagnostic Test Radiology reviewed: Image reviewed, Reports reviewed - EKG Interpretation by Me EKG shows normal: Sinus rhythm Rhythm: NSR - ST depression in V4 5 and 6. The V4 looks slightly new. The amplitude is change in the lateral leads. No acute ST changes. When compared to previous EKG there are: Changes noted Discharge - Discharge Clinical Impression: Syncope Qualifiers: Syncope type: unspecified Qualified Code(s): R55 - Syncope and collapse Condition: Good Disposition: ADMITTED OBSERVATION Admitting Provider: Hospitalist Unit Admitted: Telemetry
--- NOTE | 2017-09-28 11:23 | RADIOLOGY REPORT (SQ) ---
EXAM DESCRIPTION: CT HEAD WITHOUT COMPLETED DATE/TIME: 09/28/2017 11:11 am REASON FOR STUDY: fall COMPARISON: 12/20/2015. TECHNIQUE: Axial images acquired through the brain without intravenous contrast. Images reviewed wi th bone, brain and subdural windows. Images stored on PACS. All CT scanners at this facility use dose modulation, iterative reconstruction, and/or weight based d osing when appropriate to reduce radiation dose to as low as reasonably achievable (ALARA). [facility]: Dose Right [facility]: CareDose [facility]: Dose Right [facility]: Teradose 4D [facility]: Smart Matter.io RADIATION DOSE: Up-to-date CT equipment and radiation dose reduction techniques were employed. CTDIv ol: 64.6 mGy. DLP: 1163 mGy-cm.mGy. LIMITATIONS: None. FINDINGS: VENTRICLES: Prominent. CEREBRUM: No masses. No hemorrhage. No midline shift. Areas of low density in the white matter mos t likely due to chronic micro-vascular ischemic change. No evidence for acute infarction. CEREBELLUM: No masses. No hemorrhage. No alteration of density. No evidence for acute infarction. EXTRAAXIAL SPACES: Age-related involutional change. No fluid collections. No masses. ORBITS AND GLOBE: No intra- or extraconal masses. Normal contour of globe without masses. CALVARIUM: No fracture. PARANASAL SINUSES: No fluid or mucosal thickening. SOFT TISSUES: No mass or hematoma. OTHER: No other significant finding. IMPRESSION: CHRONIC CHANGES OF ATROPHY AND MICROVASCULAR ISCHEMIA. NO ACUTE PROCESS. EVIDENCE OF ACUTE STROKE: NO. TECHNICAL DOCUMENTATION: JOB ID: [id number] Quality ID # [id number]: Final reports with documentation of one or more dose reduction techniques (e.g., Au tomated exposure control, adjustment of the mA and/or kV according to patient size, use of iterative reconstruction technique) 2010 [employer]- All Rights Reserved
[2017-09-28 11:51] LABS: ABSOLUTE EOSINOPHILS # (AUTO) 0.2 10^3/uL (0.0-0.6); ABSOLUTE MONOCYTES (AUTO) 0.3 10^3/uL (0.1-1.4); ABSOLUTE NEUT (AUTO) 4.3 10^3/uL (1.7-8.2); BASOPHILS % (AUTO) 0.3 % (0-2); EOSINOPHILS % (AUTO) 3.7 % (0-6); HEMATOCRIT 37.8 % (36.0-47.0); HEMOGLOBIN 12.9 g/dL (12.0-15.5); HGB HCT DIFFERENCE 0.9; LYMPHOCYTES % (AUTO) 16.8 % (13-45); MEAN CORPUSCULAR HEMOGLOBIN 32.1 pg (27.0-33.4); MEAN CORPUSCULAR HGB CONC 34.1 g/dL (32.0-36.0); MEAN CORPUSCULAR VOLUME 94 fl (80-97); MONOCYTES % (AUTO) 5.4 % (3-13); RED BLOOD COUNT 4.02 10^6/uL (3.72-5.28); RED CELL DISTRIBUTION WIDTH 13.9 % (11.5-14.0); SEGMENTED NEUTROPHILS % (AUTO) 73.8 % (42-78); WHITE BLOOD COUNT 5.9 10^3/uL (4.0-10.5)
[2017-09-28 12:11] LABS: ANION GAP 13 (5-19); BLOOD UREA NITROGEN 17 mg/dL (7-20); CALCIUM 9.1 mg/dL (8.4-10.2); CARBON DIOXIDE 29 mmol/L (22-30); CHLORIDE 98 mmol/L (98-107); CREATININE RESULT 1.29 mg/dL (0.52-1.25); GLUCOSE 204 mg/dL (75-110); POTASSIUM 4.2 mmol/L (3.6-5.0); SODIUM 140.3 mmol/L (137-145)
[2017-09-28] MEDS ORDERED: ONDANSETRON HCL INJ/PF 4 MG/2 ML SDV IV PRN (13:18)
[2017-09-28] MEDS ORDERED: NORMAL SALINE 1000 ML 1,000 ML IV PRN (13:18)
[2017-09-28] MEDS ORDERED: ACETAMINOPHEN 325 MG TABLET PO PRN (13:18)
[2017-09-28] MEDS ORDERED: OXYCODONE-ACETAMINOPHEN 5-325 MG TABLET PO PRN (13:18)
[2017-09-28] MEDS ORDERED: AMLODIPINE BESYLATE 5 MG TABLET PO ONE (14:00)
[2017-09-28] MEDS ORDERED: GLUCAGON,HUMAN RECOMB 1 MG INJ IM PRN (15:01)
[2017-09-28] MEDS ORDERED: DEXTROSE 50%-WATER 25 GM/50 ML DISP.SYRIN IV PRN ×2 (15:01)
[2017-09-28] MEDS ORDERED: DEXTROSE 40% GEL 15 GM TUBE PO PRN ×2 (15:01)
--- NOTE | 2017-09-28 15:01 | PDOC H&P ---
History of Present Illness Admission Date/PCP: 09/28/17 12:24 HELENE BOWEN, Patient complains of: Passed out today History of Present Illness: MARIO GAVIRIA is an 82 y/o white female who arrived to ED via ambulance after passing out when returning back home from neighbor's house. States that she took her medications as usual. Admits had been experiencing lower abdominal pain that goes below right breast. Pain is off and on and gets severe at times. Patient denies fever, chills, nausea, vomiting, diarrhea, chest pain, shortness of breath, weakness or similar episodes. Patient suffered a heart attack in November and had 2 stents placed. Due to co-morbidities our service was contacted and prompted to admit under the hospitalist service. Past Medical History Cardiac Medical History: Reports: Coronary Artery Disease, Myocardial Infarction , Hyperlipidema, Hypertension Endocrine Medical History: Reports: Diabetes Mellitus Type 2, Hypothyroidism GI Medical History: Reports: Gastroesophageal Reflux Disease Psychiatric Medical History: Reports: Dementia Denies: Depression Past Surgical History Past Surgical History: Reports: Appendectomy, Cardiac Catheterization, Cholecystectomy, Hysterectomy, Other - stent placement Social History Smoking Status: Former Smoker Frequency of Alcohol Use: None Hx Recreational Drug Use: No Drugs: None Hx Prescription Drug Abuse: No - Advance Directive Resuscitation Status: Full Code Family History Family History: Other - heart disease. denies: Reviewed & Not Pertinent - heart disease Parental Family History Reviewed: Yes Children Family History Reviewed: Yes Sibling(s) Family History Reviewed.: Yes Medication/Allergy Home Medications: Aspirin [Ecotrin 81 mg EC Tablet] 81 mg PO DAILY 09/28/17 Cephalexin Monohydrate [Keflex 500 mg Capsule] 500 mg PO DAILY 09/28/17 Clopidogrel Bisulfate [Plavix 75 mg Tablet] 75 mg PO DAILY 09/28/17 Hydroxyzine HCl [Atarax 25 mg Tablet] 25 mg PO ASDIR PRN 09/28/17 Insulin Glargine,Hum.rec.anlog [Lantus Solostar] 30 units SQ QPM 09/28/17 Levothyroxine Sodium [Synthroid] 125 mcg PO DAILY 09/28/17 Metformin HCl [Glucophage] 1,000 mg PO BID 09/28/17 Metoprolol Tartrate [Lopressor 50 mg Tablet] 50 mg PO Q12 09/28/17 Pantoprazole Sodium [Protonix] 40 mg PO DAILY 09/28/17 Rosuvastatin Calcium [Crestor 10 mg Tablet] 10 mg PO DAILY 09/28/17 Trospium Chloride [Trospium Chloride ER] 60 mg PO QHS 09/28/17 Allergies/Adverse Reactions: codeine [Codeine] Allergy (Verified 09/28/17 11:53) levofloxacin [From Levaquin] Allergy (Verified 09/28/17 11:53) Review of Systems Constitutional: PRESENT: as per HPI Eyes: PRESENT: other - swelling of right eyelid. ABSENT: as per HPI Cardiovascular: ABSENT: chest pain, dyspnea on exertion, edema, palpitations Respiratory: ABSENT: cough, dyspnea Gastrointestinal: PRESENT: abdominal pain. ABSENT: constipation, diarrhea, nausea, vomiting Genitourinary: PRESENT: other - reently treated for urinary tract infection Physical Exam Vital Signs: Temp Pulse Resp BP Pulse Ox 64 16 171/89 H 97 09/28/17 13:00 09/28/17 12:31 09/28/17 13:00 09/28/17 12:31 Intake & Output 09/27/17 09/28/17 09/29/17 06:59 06:59 06:59 Weight 71 kg General appearance: PRESENT: no acute distress, cooperative, obese Head exam: PRESENT: atraumatic, normocephalic Eye exam: PRESENT: conjunctiva pink, EOMI, PERRLA, other - right eyelid appears purplish and swollen. Mouth exam: PRESENT: moist, neck supple Neck exam: PRESENT: full ROM, JVD. ABSENT: tenderness Respiratory exam: PRESENT: chest wall tenderness, clear to auscultation niles Vascular exam: PRESENT: normal capillary refill GI/Abdominal exam: PRESENT: guarding, soft, tenderness Rectal exam: PRESENT: deferred Extremities exam: PRESENT: full ROM Musculoskeletal exam: PRESENT: full ROM Neurological exam: PRESENT: alert, oriented to person, oriented to place, oriented to time, oriented to situation Psychiatric exam: PRESENT: appropriate affect, normal mood Skin exam: PRESENT: normal color Results EKG Comments: NSR T depression in inferior leads Impressions: Head CT 09/28/17 10:44 IMPRESSION: CHRONIC CHANGES OF ATROPHY AND MICROVASCULAR ISCHEMIA. NO ACUTE PROCESS. EVIDENCE OF ACUTE STROKE: NO. Assessment & Plan - Diagnosis (1) Syncope Qualifiers: Syncope type: unspecified Qualified Code(s): R55 - Syncope and collapse Is this a current diagnosis for this admission?: Yes Plan: Patient will be admitted under observation status to telemetry. Troponin will be trended. Will watch for any cardiac dysrrythmia that could account for her presentation. (2) Acute kidney injury Is this a current diagnosis for this admission?: Yes Plan: Will place on ivf's and trend renal panel. Suspect finding may relate to chronic issue rather than acute. (3) Diabetes mellitus Qualifiers: Diabetes mellitus type: type 2 Is this a current diagnosis for this admission?: Yes Plan: Will place on lispro sliding scale and to cover AC and HS. (4) Hypertension Is this a current diagnosis for this admission?: Yes Plan: Blood pressure is uncontrolled. Suspect cerebral hypoperfusion in the setting of abrupt increase. To add amlodipine to her regimen. Once sorting out renal status will consider adding WALTER (5) Hypothyroidism Is this a current diagnosis for this admission?: No Plan: Continue outpatient regimen (6) Abdominal pain Qualifiers: Abdominal location: lower abdomen, unspecified Qualified Code(s): R10.30 - Lower abdominal pain, unspecified Is this a current diagnosis for this admission?: Yes Plan: To order a CT of abdomen and pelvis which will help to evaluate for any contusion due to fall. - Time Time Spent: 50 to 70 Minutes Medications reviewed and adjusted accordingly: Yes Anticipated discharge: Home Within: within 48 hours - Inpatient Certification Based on my medical assessment, after consideration of the patient's comorbidities, presenting symptoms, or acuity I expect that the services needed warrant INPATIENT care.: No I certify that my determination is in accordance with my understanding of Medicare's requirements for reasonable and necessary INPATIENT services [42 CFR 412.3e].: Yes Medical Necessity: Failure to Improve With Outpatient Therapy
--- NOTE | 2017-09-28 17:40 | RADIOLOGY REPORT (SQ) ---
EXAM DESCRIPTION: CT ABD/PELVIS WITH IV ORAL COMPLETED DATE/TIME: 09/28/2017 5:20 pm REASON FOR STUDY: abdominal pain-mostly right sided COMPARISON: 02/22/2016 TECHNIQUE: CT scan of the abdomen and pelvis performed using helical scanning technique with dynamic intravenous contrast injection. No oral contrast. Images reviewed with lung, soft tissue, and bone windows. Reconstructed coronal and sagittal MPR images reviewed. Delayed images for evaluation of the urinary system also acquired. All images stored on PACS. All CT scanners at this facility use dose modulation, iterative reconstruction, and/or weight based d osing when appropriate to reduce radiation dose to as low as reasonably achievable (ALARA). [facility]: Dose Right [facility]: CareDose [facility]: Dose Right [facility]: Teradose 4D [facility]: [employer] CONTRAST TYPE AND DOSE: contrast/concentration: Isovue 370.00 mg/ml; Total Contrast Delivered: 76.0 ml; Total Saline Delivered: 67.0 ml RENAL FUNCTION: Creatinine 1.3 BUN 17 RADIATION DOSE: Up-to-date CT equipment and radiation dose reduction techniques were employed. CTDIv ol: 11.3 - 16.4 mGy. DLP: 1282 mGy-cm.. LIMITATIONS: None. FINDINGS: LOWER CHEST: No significant findings. No nodules or infiltrates. Small hiatal hernia. LIVER: Normal size. No masses. No dilated ducts. SPLEEN: Normal size. No focal lesions. PANCREAS: Atrophy. No masses. GALLBLADDER: Surgically absent. ADRENAL GLANDS: No significant masses or asymmetry. RIGHT KIDNEY AND URETER: No solid masses. No significant calcifications. No hydronephrosis or hyd roureter. LEFT KIDNEY AND URETER: No solid masses. No significant calcifications. No hydronephrosis or hydr oureter. AORTA AND VESSELS: No aneurysm. There is atherosclerosis with plaques at the origins of the celiac a nd renal arteries. RETROPERITONEUM: No retroperitoneal adenopathy, hemorrhage or masses. BOWEL AND PERITONEAL CAVITY: Considerable fecal material is present. APPENDIX: Surgically absent. PELVIS: Urinary bladder is normal. The uterus is absent. There is no adnexal mass or fluid collecti on. ABDOMINAL WALL: No masses. No hernias. BONES: No significant or acute findings. OTHER: No other significant finding. IMPRESSION: Small hiatal hernia. Atherosclerosis. Possible constipation. TECHNICAL DOCUMENTATION: JOB ID: [id number] Quality ID # [id number]: Final reports with documentation of one or more dose reduction techniques (e.g., Au tomated exposure control, adjustment of the mA and/or kV according to patient size, use of iterative reconstruction technique) 2010 [employer]- All Rights Reserved
[2017-09-28] MEDS: LANSOPRAZOLE 30 MG TAB.RAP.DR PO SCH (17:46)
[2017-09-28] MEDS: DOCUSATE SODIUM 100 MG CAPSULE PO SCH (17:46)
[2017-09-28] MEDS ORDERED: HYDRALAZINE HCL INJ/PF 20 MG/1 ML SDV IV PRN (18:35)
[2017-09-28] MEDS ORDERED: INFLUENZA ADLT QUAD (36MOS+) 2017-18 VAC 0.5 ML SYR IM PRN (20:02)
--- NOTE | 2017-09-28 21:38 | EKG REPORT ---
SEVERITY:- ABNORMAL ECG - SINUS RHYTHM NONSPECIFIC REPOL ABNORMALITY, DIFFUSE LEADS : Confirmed by: Vern Menendez 28-Sep-2017 21:38:15
[2017-09-28] MEDS: SENNOSIDES/DOCUSATE 8.6-50 MG 1 EACH TABLET PO SCH (22:21)
[2017-09-28] MEDS: METOPROLOL TARTRATE 50 MG TABLET PO SCH (22:21)
[2017-09-28] MEDS: INSULIN LISPRO 100 UNIT/ML 3 ML VIAL SUBCUT PRN (22:23)
[2017-09-29 03:59] LABS: APPEARANCE,URINE CLOUDY; BILIRUBIN,URINE NEGATIVE (NEGATIVE); GLUCOSE, URINE NEGATIVE (NEGATIVE); KETONES,URINE NEGATIVE (NEGATIVE); LEUKOCYTE ESTERASE,URINE LARGE (NEGATIVE); NITRITE,URINE NEGATIVE (NEGATIVE); PROTEIN,URINE NEGATIVE (NEGATIVE); URINE SPECIFIC GRAVITY 1.023
[2017-09-29] MEDS: LEVOTHYROXINE SODIUM 0.025 MG TABLET PO SCH (05:40)
[2017-09-29] MEDS: LANSOPRAZOLE 30 MG TAB.RAP.DR PO SCH ×2 (05:40→16:23)
[2017-09-29] MEDS: LEVOTHYROXINE SODIUM 0.1 MG TABLET PO SCH (05:40)
[2017-09-29] MEDS ORDERED: (PENDING PHARMACY ID) (Levothyroxine Sodium [Synthroid] 125 MCG) PO SCH (06:00)
[2017-09-29 06:30] LABS: HEMATOCRIT 36.1 % (36.0-47.0); HEMOGLOBIN 12.3 g/dL (12.0-15.5); HGB HCT DIFFERENCE 0.8; MEAN CORPUSCULAR HEMOGLOBIN 31.6 pg (27.0-33.4); MEAN CORPUSCULAR HGB CONC 34.1 g/dL (32.0-36.0); MEAN CORPUSCULAR VOLUME 93 fl (80-97); RED CELL DISTRIBUTION WIDTH 13.8 % (11.5-14.0); WHITE BLOOD COUNT 5.8 10^3/uL (4.0-10.5)
[2017-09-29 06:59] LABS: ANION GAP 13 (5-19); BLOOD UREA NITROGEN 17 mg/dL (7-20); CARBON DIOXIDE 27 mmol/L (22-30); CHLORIDE 97 mmol/L (98-107); CREATININE RESULT 1.22 mg/dL (0.52-1.25); GLUCOSE 172 mg/dL (75-110); MAGNESIUM 1.5 mg/dL (1.6-2.3); POTASSIUM 3.9 mmol/L (3.6-5.0); SODIUM 137.2 mmol/L (137-145)
--- NOTE | 2017-09-29 08:53 | RADIOLOGY REPORT (SQ) ---
EXAM DESCRIPTION: MRI HEAD WITHOUT COMPLETED DATE/TIME: 09/28/2017 9:22 pm REASON FOR STUDY: syncope/uncontrolled high blood pressure COMPARISON: CT brain 09/28/2017, 12/20/2015 MRI brain 06/02/2016, 05/19/2014 TECHNIQUE: Multiplanar imaging includes non-contrasted T1, T2, FLAIR, and diffusion with ADC map seq uences. Images stored on PACS. LIMITATIONS: None. FINDINGS: ANATOMY: No developmental anomalies. Normal vascular flow voids. Pituitary fossa normal. CSF SPACES: Normal in size and contour for image. No acute or chronic hemorrhage. CEREBRUM: No MR evidence of acute ischemic change, acute intracranial hemorrhage, mass effect, or mid line shift. There is an old right inferior frontal cortical contusion, and an old right occipital infarct. Exten sive chronic deep periventricular bifrontal and biparietal white matter disease, stable. POSTERIOR FOSSA: No signal alteration. No hemorrhage. No edema, masses or mass effect. Internal wendie tory canals, cerebello-pontine angles, mastoids normal. DIFFUSION IMAGING: Negative for acute or sub-acute infarction. ORBITS: There is extensive right-sided premaxillary and preseptal orbital soft tissue swelling, with fluid throughout the right maxillary sinus. Mild right proptosis on axial image 9. A right-sided or bital floor fracture may be present. Consider CT facial bones for followup PARANASAL SINUSES: No fluid levels. Mucosa normal. OTHER: No other significant finding. IMPRESSION: No MR evidence of acute large territory ischemic change, acute intracranial hemorrhage, mass effect, or midline shift. Old right inferior frontal contusion, right inferior occipital infarct, and extensive chronic appeari ng bifrontal and biparietal small vessel ischemic change in the hemispheric white matter. Mild proptosis, extensive right preseptal orbital soft tissue swelling. Right orbital floor fracture could not be excluded. Consider CT facial bones for followup. EVIDENCE OF ACUTE STROKE: NO. TECHNICAL DOCUMENTATION: JOB ID: [id number] [employer]- All Rights Reserved
[2017-09-29] MEDS ORDERED: MAGNESIUM SULFATE/D5W 1 GM/100 ML RTUPB IV ONE (09:00)
[2017-09-29] MEDS: INSULIN LISPRO 100 UNIT/ML 3 ML VIAL SUBCUT PRN ×3 (09:26→16:23)
[2017-09-29] MEDS ORDERED: NITROFURANTOIN MONOHYD/M-CRYST 100 MG CAPSULE PO SCH (10:00)
[2017-09-29] MEDS ORDERED: AMLODIPINE BESYLATE 5 MG TABLET PO SCH (10:00)
[2017-09-29] MEDS: FONDAPARINUX SODIUM INJ 2.5 MG/0.5 ML DISP.SYRIN SUBCUT SCH (11:24)
[2017-09-29] MEDS: AMLODIPINE BESYLATE 5 MG TABLET PO SCH (11:25)
[2017-09-29] MEDS: METOPROLOL TARTRATE 50 MG TABLET PO SCH ×2 (11:25→23:02)
[2017-09-29] MEDS: DOCUSATE SODIUM 100 MG CAPSULE PO SCH ×2 (11:26→19:29)
[2017-09-29] MEDS ORDERED: CLOPIDOGREL BISULFATE 75 MG TABLET PO ONE (12:30)
[2017-09-29] MEDS ORDERED: FUROSEMIDE INJ/PF 40 MG/4 ML SDV IV ONE (12:30)
[2017-09-29] MEDS ORDERED: LISINOPRIL 10 MG TABLET PO ONE (12:30)
--- NOTE | 2017-09-29 16:17 | XCELERA REPORT ---
[address] [address] Transthoracic Echocardiogram Report Name: MARIO GAVIRIA Age: 82 yrs Gender: Female : 1935 Patient Status: Inpatient Patient Location: [address] [place] [address] Study Date: 09/29/2017 11:39 AM Height: 63 in Weight: 153 lb BSA: 1.7 m2 Procedure: A two-dimensional transthoracic echocardiogram with color flow and Doppler was performed. Study Quality: Fair. Reason For Study: chf/uncontrolled high blood pressure History: chf/uncontrolled high blood pressure. Ordering Physician: TIMI SHEEHAN Performed By: Marilyn Mcdermott Interpretation Summary The left ventricle is normal in size. There is mild concentric left ventricular hypertrophy. LV EF is 65% Left ventricular systolic function is normal. Doppler measurements suggest normal left ventricular diastolic function The left ventricular wall motion is normal. There is no thrombus. The right ventricle is normal in size and function. The left and right artia are mildly dilated The interatrial septum is intact with no evidence for an atrial septal defect. There is no evidence of mitral valve prolapse. There is a moderate amount of mitral regurgitation There is no aortic valve stenosis There is no LVOT obstruction. There is a mild amount of tricuspid regurgitation There is mild pulmonary hypertension by echo RVSP is 39 mm of Hg ,with RAmran of5. There is no pericardial effusion. MMode/2D Measurements & Calculations RVDd: 2.5 cm LVIDd: 3.8 cm FS: 35.8 % Ao root diam: 3.0 cm IVSd: 1.3 cm LVIDs: 2.4 cm EDV(Teich): 61.5 ml LVPWd: 1.3 cm ESV(Teich): 20.9 ml Ao root area: 7.2 cm2 EF(Teich): 66.1 % LA dimension: 4.1 cm Doppler Measurements & Calculations MV E max carlos: MV P1/2t max carlos: Ao V2 max: LV V1 max P.6 cm/sec 111.6 cm/sec 123.4 cm/sec 3.3 mmHg MV A max carlos: MV P1/2t: 58.3 msec Ao max PG: LV V1 max: 96.3 cm/sec 6.1 mmHg 91.3 cm/sec MV E/A: 1.2 MVA(P1/2t): 3.8 cm2 MV dec slope: 560.7 cm/sec2 PA V2 max: TR max carlos: 87.9 cm/sec 289.0 cm/sec PA max P.1 mmHgTR max P.4 mmHg Left Ventricle The left ventricle is normal in size. There is mild concentric left ventricular hypertrophy. LV EF is 65%. Left ventricular systolic function is normal. Doppler measurements suggest normal left ventricular diastolic function. The left ventricular wall motion is normal. There is no thrombus. There is no ventricular septal defect visualized. Right Ventricle The right ventricle is normal in size and function. Atria The right atrium is normal. The left and right artia are mildly dilated. The interatrial septum is intact with no evidence for an atrial septal defect. Mitral Valve There is no evidence of mitral valve prolapse. There is no vegetation seen on the mitral valve. There is no mitral valve stenosis. There is a moderate amount of mitral regurgitation. Aortic Valve There is no aortic valvular vegetation. There is no aortic valve stenosis. There is no LVOT obstruction. No aortic regurgitation is present. Tricuspid Valve There is no tricuspid stenosis. There is a mild amount of tricuspid regurgitation. There is mild pulmonary hypertension by echo. RVSP is 39 mm of Hg ,with RAmran of5. Great Vessels The aortic root is not well visualized. Effusions There is no pericardial effusion. : TIMI SHEEHAN > Smitha Jim
--- NOTE | 2017-09-29 17:18 | PDOC PROGRESS REPORT ---
Subjective Progress Note for:: 09/29/17 Subjective:: Patient refers that feels better. Daughter is at bedside and clarified patient' s medications. Had extensive conversation with her current findings including blood pressure, renal problems and uti. Physical Exam Vital Signs: Temp Pulse Resp BP Pulse Ox 98.2 F 61 18 157/52 H 96 09/29/17 04:00 09/29/17 04:00 09/29/17 04:00 09/29/17 04:00 09/29/17 04:00 Intake & Output 09/28/17 09/29/17 09/30/17 06:59 06:59 06:59 Intake Total 880 Output Total 400 Balance 480 Weight 69.6 kg General appearance: PRESENT: no acute distress, cooperative, obese Head exam: PRESENT: atraumatic, normocephalic Eye exam: PRESENT: EOMI, periorbital swelling - right eye. Swelling and purplish discoloration improving., PERRLA Mouth exam: PRESENT: moist, neck supple Neck exam: PRESENT: full ROM, JVD Respiratory exam: PRESENT: clear to auscultation niles GI/Abdominal exam: PRESENT: normal bowel sounds. ABSENT: distended, firm, guarding, tenderness Extremities exam: ABSENT: pedal edema, tenderness Neurological exam: PRESENT: alert, oriented to person, oriented to place, oriented to time, oriented to situation Psychiatric exam: PRESENT: appropriate affect, normal mood Results Laboratory Results: 09/29/17 06:01 09/29/17 06:01 09/29/17 09/29/17 09/29/17 03:30 06:01 06:01 WBC 5.8 RBC 3.90 Hgb 12.3 Hct 36.1 MCV 93 MCH 31.6 MCHC 34.1 RDW 13.8 Plt Count 142 L Sodium 137.2 Potassium 3.9 Chloride 97 L Carbon Dioxide 27 Anion Gap 13 BUN 17 Creatinine 1.22 Est GFR ( Amer) 51 L Est GFR (Non-Af Amer) 42 L Glucose 172 H Calcium 9.0 Magnesium 1.5 L TSH Urine Color YELLOW Urine Appearance CLOUDY Urine pH 6.0 Ur Specific [place] 1.023 Urine Protein NEGATIVE Urine Glucose (UA) NEGATIVE Urine Ketones NEGATIVE Urine Blood SMALL H Urine Nitrite NEGATIVE Ur Leukocyte Esterase LARGE H Urine WBC (Auto) >182 Urine RBC (Auto) 2 09/29/17 06:01 WBC RBC Hgb Hct MCV MCH MCHC RDW Plt Count Sodium Potassium Chloride Carbon Dioxide Anion Gap BUN Creatinine Est GFR ( Amer) Est GFR (Non-Af Amer) Glucose Calcium Magnesium TSH 1.27 Urine Color Urine Appearance Urine pH Ur Specific [place] Urine Protein Urine Glucose (UA) Urine Ketones Urine Blood Urine Nitrite Ur Leukocyte Esterase Urine WBC (Auto) Urine RBC (Auto) 09/28/17 09/28/17 09/29/17 14:27 19:25 01:17 Troponin I < 0.012 < 0.012 < 0.012 NT-Pro-B Natriuret Pep 09/29/17 06:01 Troponin I NT-Pro-B Natriuret Pep 2540 H Impressions: Head CT 09/28/17 10:44 IMPRESSION: CHRONIC CHANGES OF ATROPHY AND MICROVASCULAR ISCHEMIA. NO ACUTE PROCESS. EVIDENCE OF ACUTE STROKE: NO. Abdomen/Pelvis CT 09/28/17 16:45 IMPRESSION: Small hiatal hernia. Atherosclerosis. Possible constipation. Assessment & Plan - Diagnosis (1) Syncope Qualifiers: Syncope type: unspecified Qualified Code(s): R55 - Syncope and collapse Is this a current diagnosis for this admission?: Yes Plan: Major issue related to cerebral hypoperfusion in the setting of abrupt worsening of blood pressure. (2) Acute kidney injury Is this a current diagnosis for this admission?: Yes Plan: Discontinue ivf's and since BNP elevated. Found out patient is been treated chronically with septra for prevention of bladder infection. Certaintly can contribute to abnormal renal funciton. Daughter aware not to reassume medication on discharge. on admission suspect finding is chronic instead of acute. (3) Diabetes mellitus Qualifiers: Diabetes mellitus type: type 2 Is this a current diagnosis for this admission?: Yes Plan: Will place on lispro sliding scale and to cover AC and HS. Continue lantus as outpatient. (4) Hypertension Qualifiers: Hypertension type: essential hypertension Qualified Code(s): I10 - Essential (primary) hypertension Is this a current diagnosis for this admission?: Yes Plan: Blood pressure is better after adding norvasc. To add lisinopril and continue lopressor. (5) Hypothyroidism Is this a current diagnosis for this admission?: No Plan: Continue outpatient regimen (6) Abdominal pain Qualifiers: Abdominal location: lower abdomen, unspecified Qualified Code(s): R10.30 - Lower abdominal pain, unspecified Is this a current diagnosis for this admission?: Yes Plan: Normal CT of abdomen/pelvis and discussed with patient and daughter. (7) CHF (congestive heart failure), NYHA class III Qualifiers: Congestive heart failure chronicity: acute on chronic Is this a current diagnosis for this admission?: Yes Plan: Order ECHO. Start lasix iv and add WALTER to current regimen - Time Time Spent with patient: 25-34 minutes Medications reviewed and adjusted accordingly: Yes Anticipated discharge: Home Within: within 48 hours - Inpatient Certification Based on my medical assessment, after consideration of the patient's comorbidities, presenting symptoms, or acuity I expect that the services needed warrant INPATIENT care.: Yes I certify that my determination is in accordance with my understanding of Medicare's requirements for reasonable and necessary INPATIENT services [42 CFR 412.3e].: Yes Medical Necessity: Need Close Monitoring Due to Risk of Patient Decompensation
[2017-09-29] MEDS: INSULIN GLARGINE,HUM.REC.ANLOG 300 UNIT/3 ML INSULN.PEN SUBCUT SCH (18:57)
[2017-09-29] MEDS: SENNOSIDES/DOCUSATE 8.6-50 MG 1 EACH TABLET PO SCH (23:01)
[2017-09-29] MEDS: FUROSEMIDE INJ/PF 40 MG/4 ML SDV IV SCH (23:02)
[2017-09-30] MEDS: LEVOTHYROXINE SODIUM 0.1 MG TABLET PO SCH (06:11)
[2017-09-30] MEDS: LEVOTHYROXINE SODIUM 0.025 MG TABLET PO SCH (06:11)
[2017-09-30] MEDS: LANSOPRAZOLE 30 MG TAB.RAP.DR PO SCH ×2 (06:11→16:44)
[2017-09-30 07:26] LABS: ANION GAP 16 (5-19); BLOOD UREA NITROGEN 21 mg/dL (7-20); CALCIUM 8.5 mg/dL (8.4-10.2); CARBON DIOXIDE 28 mmol/L (22-30); CHLORIDE 96 mmol/L (98-107); CREATININE RESULT 1.44 mg/dL (0.52-1.25); GLUCOSE 139 mg/dL (75-110); MAGNESIUM 1.7 mg/dL (1.6-2.3); POTASSIUM 3.4 mmol/L (3.6-5.0); SODIUM 139.6 mmol/L (137-145)
[2017-09-30] MEDS ORDERED: POTASSIUM CHLORIDE 10 MEQ TABLET.SA PO ONE (07:56)
[2017-09-30] MEDS: FONDAPARINUX SODIUM INJ 2.5 MG/0.5 ML DISP.SYRIN SUBCUT SCH (07:57)
[2017-09-30] MEDS: METOPROLOL TARTRATE 50 MG TABLET PO SCH (09:17)
[2017-09-30] MEDS: CLOPIDOGREL BISULFATE 75 MG TABLET PO SCH (09:17)
[2017-09-30] MEDS: DOCUSATE SODIUM 100 MG CAPSULE PO SCH ×2 (09:17→17:34)
[2017-09-30] MEDS: FUROSEMIDE INJ/PF 40 MG/4 ML SDV IV SCH (09:17)
[2017-09-30] MEDS: INSULIN LISPRO 100 UNIT/ML 3 ML VIAL SUBCUT PRN ×2 (12:32→16:44)
[2017-09-30] MEDS: LISINOPRIL 10 MG TABLET PO SCH (12:32)
[2017-09-30] MEDS: AMLODIPINE BESYLATE 5 MG TABLET PO SCH (12:32)
[2017-09-30] MEDS: HYDRALAZINE HCL 25 MG TABLET PO SCH (16:44)
--- NOTE | 2017-09-30 17:08 | PDOC PROGRESS REPORT ---
Subjective Progress Note for:: 09/30/17 Subjective:: Patient relates that the pain in the lower abdomen is gone. Physical Exam Vital Signs: Temp Pulse Resp BP Pulse Ox 98.0 F 57 L 17 162/83 H 97 09/30/17 03:48 09/30/17 03:48 09/30/17 03:48 09/30/17 03:48 09/30/17 03:48 Intake & Output 09/29/17 09/30/17 10/01/17 06:59 06:59 05:59 Intake Total 1065 Output Total 1900 Balance -835 Weight 70.3 kg General appearance: PRESENT: no acute distress, cooperative, obese Head exam: PRESENT: atraumatic, normocephalic Eye exam: PRESENT: EOMI, PERRLA, other - swelling to right eyelid improving Ear exam: PRESENT: normal external ear exam Neck exam: PRESENT: full ROM, tenderness. ABSENT: JVD Respiratory exam: PRESENT: clear to auscultation niles Cardiovascular exam: PRESENT: RRR. ABSENT: diastolic murmur, systolic murmur Vascular exam: PRESENT: normal capillary refill GI/Abdominal exam: PRESENT: normal bowel sounds. ABSENT: distended, firm Extremities exam: PRESENT: calf tenderness, full ROM, tenderness Musculoskeletal exam: PRESENT: full ROM Neurological exam: PRESENT: alert, oriented to person, oriented to place, oriented to time Psychiatric exam: PRESENT: appropriate affect, normal mood Results Laboratory Results: 09/30/17 06:08 09/30/17 06:08 Sodium 139.6 Potassium 3.4 L Chloride 96 L Carbon Dioxide 28 Anion Gap 16 BUN 21 H Creatinine 1.44 H Est GFR ( Amer) 42 L Est GFR (Non-Af Amer) 35 L Glucose 139 H Calcium 8.5 Magnesium 1.7 Impressions: Head MRI 09/28/17 00:00 IMPRESSION: No MR evidence of acute large territory ischemic change, acute intracranial hemorrhage, mass effect, or midline shift. Old right inferior frontal contusion, right inferior occipital infarct, and extensive chronic appearing bifrontal and biparietal small vessel ischemic change in the hemispheric white matter. Mild proptosis, extensive right preseptal orbital soft tissue swelling. Right orbital floor fracture could not be excluded. Consider CT facial bones for followup. EVIDENCE OF ACUTE STROKE: NO. Head CT 09/28/17 10:44 IMPRESSION: CHRONIC CHANGES OF ATROPHY AND MICROVASCULAR ISCHEMIA. NO ACUTE PROCESS. EVIDENCE OF ACUTE STROKE: NO. Abdomen/Pelvis CT 09/28/17 16:45 IMPRESSION: Small hiatal hernia. Atherosclerosis. Possible constipation. Assessment & Plan - Diagnosis (1) Syncope Qualifiers: Syncope type: unspecified Qualified Code(s): R55 - Syncope and collapse Is this a current diagnosis for this admission?: Yes Plan: Major issue related to cerebral hypoperfusion in the setting of abrupt worsening of blood pressure. (2) Diabetes mellitus Qualifiers: Diabetes mellitus type: type 2 Is this a current diagnosis for this admission?: Yes Plan: Will place on lispro sliding scale and to cover AC and HS. Continue lantus as outpatient. (3) Hypertension Qualifiers: Hypertension type: essential hypertension Qualified Code(s): I10 - Essential (primary) hypertension Is this a current diagnosis for this admission?: Yes Plan: Continue lisinopril, norvasc and lopressor. Will add hydralazine and follow up response. (4) Hypothyroidism Is this a current diagnosis for this admission?: No Plan: Continue outpatient regimen (5) Abdominal pain Qualifiers: Abdominal location: lower abdomen, unspecified Qualified Code(s): R10.30 - Lower abdominal pain, unspecified Is this a current diagnosis for this admission?: Yes Plan: Resolved (6) CHF (congestive heart failure), NYHA class III Qualifiers: Congestive heart failure chronicity: acute on chronic Is this a current diagnosis for this admission?: Yes Plan: ECHO noted. Appears makenzie acute on chronic presentation. Discontinue lasix iv since adding hydralazine and wanting to avoid abrupt drop in BP. (7) Chronic kidney disease (CKD) stage G1/A3, glomerular filtration rate (GFR) equal to or greater than 90 mL/min/1.73 square meter and albuminuria creatinine ratio greater than 300 mg/g Is this a current diagnosis for this admission?: Yes Plan: Acute component ruled out. - Time Time Spent with patient: 15-24 minutes Medications reviewed and adjusted accordingly: Yes Anticipated discharge: Home Within: within 48 hours
[2017-09-30] MEDS: INSULIN GLARGINE,HUM.REC.ANLOG 300 UNIT/3 ML INSULN.PEN SUBCUT SCH (17:39)
[2017-10-01] MEDS: METOPROLOL TARTRATE 50 MG TABLET PO SCH ×3 (01:21→22:24)
[2017-10-01] MEDS: HYDRALAZINE HCL 25 MG TABLET PO SCH ×2 (01:21→06:13)
[2017-10-01] MEDS: SENNOSIDES/DOCUSATE 8.6-50 MG 1 EACH TABLET PO SCH ×2 (01:21→22:24)
[2017-10-01] MEDS: FUROSEMIDE INJ/PF 40 MG/4 ML SDV IV SCH (01:21)
[2017-10-01] MEDS: LANSOPRAZOLE 30 MG TAB.RAP.DR PO SCH ×2 (06:12→17:23)
[2017-10-01] MEDS: LEVOTHYROXINE SODIUM 0.025 MG TABLET PO SCH (06:12)
[2017-10-01] MEDS: LEVOTHYROXINE SODIUM 0.1 MG TABLET PO SCH (06:13)
[2017-10-01 06:26] LABS: ANION GAP 15 (5-19); BLOOD UREA NITROGEN 29 mg/dL (7-20); CALCIUM 9.2 mg/dL (8.4-10.2); CARBON DIOXIDE 28 mmol/L (22-30); CHLORIDE 98 mmol/L (98-107); CREATININE RESULT 1.47 mg/dL (0.52-1.25); GLUCOSE 70 mg/dL (75-110); MAGNESIUM 1.6 mg/dL (1.6-2.3); POTASSIUM 3.4 mmol/L (3.6-5.0); SODIUM 141.2 mmol/L (137-145)
[2017-10-01] MEDS: FONDAPARINUX SODIUM INJ 2.5 MG/0.5 ML DISP.SYRIN SUBCUT SCH (07:38)
[2017-10-01] MEDS: CLOPIDOGREL BISULFATE 75 MG TABLET PO SCH (09:21)
[2017-10-01] MEDS: DOCUSATE SODIUM 100 MG CAPSULE PO SCH ×2 (09:21→17:23)
[2017-10-01] MEDS: LISINOPRIL 10 MG TABLET PO SCH (11:53)
[2017-10-01] MEDS: AMLODIPINE BESYLATE 5 MG TABLET PO SCH ×2 (11:53→11:54)
[2017-10-01] MEDS: INSULIN GLARGINE,HUM.REC.ANLOG 300 UNIT/3 ML INSULN.PEN SUBCUT SCH (17:23)
[2017-10-01] MEDS ORDERED: CEPHALEXIN 500 MG CAPSULE ONE (22:28)
[2017-10-01] MEDS: CEPHALEXIN 500 MG CAPSULE PO SCH (22:34)
[2017-10-02 05:01] LABS: ANION GAP 13 (5-19); BLOOD UREA NITROGEN 34 mg/dL (7-20); CALCIUM 9.4 mg/dL (8.4-10.2); CARBON DIOXIDE 31 mmol/L (22-30); CHLORIDE 96 mmol/L (98-107); CREATININE RESULT 1.37 mg/dL (0.52-1.25); GLUCOSE 89 mg/dL (75-110); MAGNESIUM 1.8 mg/dL (1.6-2.3); POTASSIUM 4.3 mmol/L (3.6-5.0); SODIUM 139.7 mmol/L (137-145)
[2017-10-02] MEDS: LEVOTHYROXINE SODIUM 0.1 MG TABLET PO SCH (05:52)
[2017-10-02] MEDS: LEVOTHYROXINE SODIUM 0.025 MG TABLET PO SCH (05:52)
[2017-10-02] MEDS: LANSOPRAZOLE 30 MG TAB.RAP.DR PO SCH (05:52)
[2017-10-02 08:01] VITALS: BP 137/54
--- NOTE | 2017-10-02 09:01 | PDOC DISCHARGE SUMMARY ---
General - Admit/Disc Date/PCP Admission Date/Primary Care Provider: 09/29/17 10:54 HELENE BOWEN, Discharge Date: 10/02/17 - Discharge Diagnosis (1) E. coli UTI Is this a current diagnosis for this admission?: Yes Summary: Continue antibiotics and fluids (2) Syncope Is this a current diagnosis for this admission?: Yes Summary: No intracerebral hemorrhage or new stroke. The MRI and CT consistent with chronic small vessel disease (4) Dehydration Summary: BUN and creatinines have improved with IV hydration - Additional Information Resuscitation Status: Full Code Discharge Diet: As Tolerated Discharge Activity: Activity As Tolerated Home Medications: Aspirin [Ecotrin 81 mg EC Tablet] 81 mg PO DAILY 09/28/17 Cephalexin Monohydrate [Keflex 500 mg Capsule] 500 mg PO DAILY 09/28/17 Clopidogrel Bisulfate [Plavix 75 mg Tablet] 75 mg PO DAILY 09/28/17 Hydroxyzine HCl [Atarax 25 mg Tablet] 25 mg PO ASDIR PRN 09/28/17 Insulin Glargine,Hum.rec.anlog [Lantus Solostar] 30 units SQ QPM 09/28/17 Levothyroxine Sodium [Synthroid] 125 mcg PO DAILY 09/28/17 Metformin HCl [Glucophage] 1,000 mg PO BID 09/28/17 Metoprolol Tartrate [Lopressor 50 mg Tablet] 50 mg PO Q12 09/28/17 Pantoprazole Sodium [Protonix] 40 mg PO DAILY 09/28/17 Rosuvastatin Calcium [Crestor 10 mg Tablet] 10 mg PO DAILY 09/28/17 Trospium Chloride [Trospium Chloride ER] 60 mg PO QHS 09/28/17 History of Present Illness History of Present Illness: MARIO GAVIRIA is a 82 year old female Hospital Course Hospital Course: The patient did well after the admission. She has received some IV fluids and antibiotics. She had an extensive workup done for her syncope. She does not know if she trips over something. She was found to have a urinary tract infection with E. coli. Physical Exam Vital Signs: Temp Pulse Resp BP Pulse Ox 98.1 F 68 18 137/54 H 98 10/02/17 07:08 10/02/17 07:08 10/02/17 07:08 10/02/17 07:08 10/02/17 07:08 Intake & Output 10/01/17 10/02/17 10/03/17 06:59 06:59 06:59 Intake Total 1390 Output Total 1000 Balance 390 Weight 71.1 kg General appearance: PRESENT: mild distress Additional Comments: Posttraumatic right facial hematoma Eye exam: PRESENT: periorbital swelling Neck exam: PRESENT: carotid bruit Respiratory exam: PRESENT: clear to auscultation niles Cardiovascular exam: PRESENT: irregular rhythm, +S1, +S2 Pulses: PRESENT: +1 pedal pulses bilateral GI/Abdominal exam: PRESENT: normal bowel sounds, soft Extremities exam: PRESENT: full ROM Musculoskeletal exam: PRESENT: ambulatory Neurological exam: PRESENT: alert Results Laboratory Results: 10/02/17 04:26 10/02/17 04:26 Sodium 139.7 Potassium 4.3 Chloride 96 L Carbon Dioxide 31 H Anion Gap 13 BUN 34 H Creatinine 1.37 H Est GFR ( Amer) 45 L Est GFR (Non-Af Amer) 37 L Glucose 89 Calcium 9.4 Magnesium 1.8 Impressions: Head MRI 09/28/17 00:00 IMPRESSION: No MR evidence of acute large territory ischemic change, acute intracranial hemorrhage, mass effect, or midline shift. Old right inferior frontal contusion, right inferior occipital infarct, and extensive chronic appearing bifrontal and biparietal small vessel ischemic change in the hemispheric white matter. Mild proptosis, extensive right preseptal orbital soft tissue swelling. Right orbital floor fracture could not be excluded. Consider CT facial bones for followup. EVIDENCE OF ACUTE STROKE: NO. Head CT 09/28/17 10:44 IMPRESSION: CHRONIC CHANGES OF ATROPHY AND MICROVASCULAR ISCHEMIA. NO ACUTE PROCESS. EVIDENCE OF ACUTE STROKE: NO. Abdomen/Pelvis CT 09/28/17 16:45 IMPRESSION: Small hiatal hernia. Atherosclerosis. Possible constipation.
[2017-10-02] MEDS: METOPROLOL TARTRATE 50 MG TABLET PO SCH (10:12)
[2017-10-02] MEDS: LISINOPRIL 10 MG TABLET PO SCH (10:12)
[2017-10-02] MEDS: CLOPIDOGREL BISULFATE 75 MG TABLET PO SCH (10:12)
[2017-10-02] MEDS: DOCUSATE SODIUM 100 MG CAPSULE PO SCH (10:12)
[2017-10-02] MEDS: FONDAPARINUX SODIUM INJ 2.5 MG/0.5 ML DISP.SYRIN SUBCUT SCH (10:12)
[2017-10-02] MEDS: AMLODIPINE BESYLATE 5 MG TABLET PO SCH (10:12)
[2017-10-02] MEDS: CEPHALEXIN 500 MG CAPSULE PO SCH (10:13)
--- NOTE | 2017-10-11 08:31 | Physician Advisory Note ---
Physician Advisor ProgressNote .: Pursuant to the plan for [facility], I have reviewed the medical record for this patient. Physician Advisor Statement: Chart indicates acute kidney injury was considered, but ruled out. Kidney disease felt to be chronic. GFR 30s-40s. Presence of GFR of 30-59, when not acutely worsened from baseline, indicates stage 3 CKD. Please document, if you agree: 1. "Chronic Kidney Dz, stage 3" Thanks! CK
== END 2017-10-02 10:40 | disposition home or self-care (01) | DRG 690 ==
LOC: ER 10:38 → EH 12:24 → UNDOADMOB 12:24 → 5 13:19 → UNDOADMOB 13:19 → 5 13:22 → EH 13:22 → OBSVTOIN 09-29 10:54 → 5 09-29 10:54
PROVIDERS: ADMIT Hospitalist; ATTEND Hospitalist
PROC: 3E0234Z Introduction of Serum, Toxoid and Vaccine into Muscle, Percutaneous Approach (ICD-10-PCS; principal; 2017-10-02)
DX: N39.0 Urinary tract infection, site not specified (principal); E86.0 Dehydration; E11.22 Type 2 diabetes mellitus with diabetic chronic kidney disease; I12.9 Hypertensive chronic kidney disease with stage 1 through stage 4 chronic kidney disease, or unspecified chronic kidney disease; N18.3 Chronic kidney disease, stage 3 (moderate); S00.83XA Contusion of other part of head, initial encounter; B96.20 Unspecified Escherichia coli [E. coli] as the cause of diseases classified elsewhere; W19.XXXA Unspecified fall, initial encounter; E03.9 Hypothyroidism, unspecified; I25.2 Old myocardial infarction; Z95.5 Presence of coronary angioplasty implant and graft; Z90.49 Acquired absence of other specified parts of digestive tract; Z90.710 Acquired absence of both cervix and uterus; Z87.891 Personal history of nicotine dependence; Z88.6 Allergy status to analgesic agent; Z79.82 Long term (current) use of aspirin; Z79.2 Long term (current) use of antibiotics; Y92.89 Other specified places as the place of occurrence of the external cause; Z79.02 Long term (current) use of antithrombotics/antiplatelets; Z23 Encounter for immunization
CPT/HCPCS: 36415; 70450; 70551; 74177; 80048; 81001; 82962; 83735; 83880; 84443; 84484; 85025; 85027; 87086; 87088; 87186; 90686; 93005; 93010; 93306; 99285; J1652; J1815; J1940; J2405; J3475; J7030

== ENCOUNTER → 2017-11-10 | Outpatient (CLI) | payer MEDICARE, OTHER ==
--- NOTE | 2017-11-10 11:42 | RADIOLOGY REPORT (SQ) ---
EXAM DESCRIPTION: CHEST PA/LATERAL COMPLETED DATE/TIME: 11/10/2017 11:28 am REASON FOR STUDY: BRONCHITIS, NOT SPECIFIED ACUTE OR CHRONIC,COUGH COMPARISON: 12/12/2016 and 07/22/2016. EXAM PARAMETERS: NUMBER OF VIEWS: two views TECHNIQUE: Digital Frontal and Lateral radiographic views of the chest acquired. RADIATION DOSE: NA LIMITATIONS: none FINDINGS: LUNGS AND PLEURA: Chronic interstitial changes. No focal infiltrates, masses or pneumotho rax. No pleural effusion. MEDIASTINUM AND HILAR STRUCTURES: No masses or contour abnormalities. HEART AND VASCULAR STRUCTURES: Heart normal size. No evidence for failure. BONES: No acute findings. HARDWARE: None in the chest. OTHER: No other significant finding. IMPRESSION: CHRONIC INTERSTITIAL CHANGES. NO ACUTE RADIOGRAPHIC FINDING IN THE CHEST. TECHNICAL DOCUMENTATION: JOB ID: [id number] [employer]- All Rights Reserved
[2017-11-10 12:46] LABS: ABSOLUTE EOSINOPHILS # (AUTO) 0.2 10^3/uL (0.0-0.6); ABSOLUTE LYMPHOCYTES (AUTO) 1.8 10^3/uL (0.5-4.7); ABSOLUTE MONOCYTES (AUTO) 0.3 10^3/uL (0.1-1.4); ABSOLUTE NEUT (AUTO) 3.1 10^3/uL (1.7-8.2); BASOPHILS % (AUTO) 0.5 % (0-2); EOSINOPHILS % (AUTO) 3.2 % (0-6); HEMATOCRIT 36.7 % (36.0-47.0); HEMOGLOBIN 12.8 g/dL (12.0-15.5); HGB HCT DIFFERENCE 1.7; LYMPHOCYTES % (AUTO) 33.7 % (13-45); MEAN CORPUSCULAR HEMOGLOBIN 32.1 pg (27.0-33.4); MEAN CORPUSCULAR VOLUME 92 fl (80-97); MONOCYTES % (AUTO) 6.4 % (3-13); RED CELL DISTRIBUTION WIDTH 13.1 % (11.5-14.0); SEGMENTED NEUTROPHILS % (AUTO) 56.2 % (42-78); WHITE BLOOD COUNT 5.5 10^3/uL (4.0-10.5)
[2017-11-10 13:10] LABS: ALANINE AMINOTRANSFERASE 27 U/L (9-52); ALKALINE PHOSPHATASE 68 U/L (38-126); ANION GAP 13 (5-19); ASPARTATE AMINO TRANSFERASE 18 U/L (14-36); BILIRUBIN,DIRECT 0.4 mg/dL (0.0-0.4); BILIRUBIN,TOTAL 0.4 mg/dL (0.2-1.3); BLOOD UREA NITROGEN 13 mg/dL (7-20); CALCIUM 9.5 mg/dL (8.4-10.2); CARBON DIOXIDE 30 mmol/L (22-30); CHLORIDE 96 mmol/L (98-107); CHOLESTEROL 114.49 mg/dL (0-200); CREATININE RESULT 1.02 mg/dL (0.52-1.25); Direct HDL 62 mg/dL (>40); GLUCOSE 181 mg/dL (75-110); POTASSIUM 4.5 mmol/L (3.6-5.0); SODIUM 138.7 mmol/L (137-145); TRIGLYCERIDES 126 mg/dL (<150)
[2017-11-10 13:21] LABS: DIRECT LDL 31 mg/dL (<100)
== END ==
LOC: OD 10:49
PROVIDERS: ATTEND Internal Medicine
DX: J40 Bronchitis, not specified as acute or chronic (principal); E11.9 Type 2 diabetes mellitus without complications; I25.10 Atherosclerotic heart disease of native coronary artery without angina pectoris; I10 Essential (primary) hypertension; E78.5 Hyperlipidemia, unspecified; N39.0 Urinary tract infection, site not specified
CPT/HCPCS: 36415; 71020; 80053; 80061; 83036; 84443; 85025; 87086; 87088; 87186

== ENCOUNTER 2018-05-28 10:04 | Emergency (ER) | payer MEDICARE, OTHER ==
[2018-05-28] MEDS ORDERED: ACETAMINOPHEN 325 MG TABLET PO ONE (10:46)
--- NOTE | 2018-05-28 10:47 | ER Document Report ---
ED Medical Screen (RME) - General Chief Complaint: Headache Stated Complaint: HEAD ACHE Time Seen by Provider: 05/28/18 10:42 Mode of Arrival: Wheelchair Information source: Patient, Relative Notes: 82 yr olf female on plavix aspirin presents with headache pain left upepr neck intermittently over months, seen by pcp diagnosed with muscle related pain. I have greeted and performed a rapid initial assessment of this patient. A comprehensive ED assessment and evaluation of the patient, analysis of test results and completion of the medical decision making process will be conducted by additional ED providers. PHYSICAL EXAMINATION: GENERAL: Well-appearing, well-nourished and in no acute distress. HEAD: Atraumatic, normocephalic. EYES: Pupils equal round extraocular movements intact, conjunctiva are normal. ENT: Nares patent NECK: Normal range of motion LUNGS: No respiratory distress Musculoskeletal: Normal range of motion NEUROLOGICAL: Normal speech, normal gait. PSYCH: Normal mood, normal affect. SKIN: Warm, Dry, normal turgor, no rashes or lesions noted. TRAVEL OUTSIDE OF THE [place] IN LAST 30 DAYS: No - Related Data Allergies/Adverse Reactions: codeine [Codeine] Allergy (Verified 09/28/17 11:53) levofloxacin [From Levaquin] Allergy (Verified 09/28/17 11:53) Past Medical History - Social History Chew tobacco use (# tins/day): No Frequency of alcohol use: None Drug Abuse: None - Past Medical History Cardiac Medical History: Reports: Hx Coronary Artery Disease, Hx Heart Attack, Hx Hypercholesterolemia, Hx Hypertension Endocrine Medical History: Reports: Hx Diabetes Mellitus Type 2, Hx Hypothyroidism Renal/ Medical History: Denies: Hx Peritoneal Dialysis GI Medical History: Reports: Hx Gastroesophageal Reflux Disease Psychiatric Medical History: Reports: Hx Dementia Denies: Hx Depression Past Surgical History: Reports: Hx Appendectomy, Hx Cardiac Catheterization, Hx Cardiac Surgery - stents x2, Hx Cholecystectomy, Hx Hysterectomy, Other - stent placement - Immunizations Hx Diphtheria, Pertussis, Tetanus Vaccination: Yes History of Influenza Vaccine for 08/2017 - 01/2018 Season: No Physical Exam - Vital signs Vitals: Temp Pulse Resp BP 98.7 F 72 20 158/73 H 05/28/18 10:10 05/28/18 10:10 05/28/18 10:10 05/28/18 10:10 Course - Vital Signs Vital signs: Temp Pulse Resp BP Pulse Ox 98.7 F 72 20 158/73 H 05/28/18 10:10 05/28/18 10:10 05/28/18 10:10 05/28/18 10:10 Doctor's Discharge - Discharge Referrals: HELENE BOWEN MD [Primary Care Provider] - Follow up as needed
--- NOTE | 2018-05-28 11:28 | ER Document Report ---
ED Headache - General Chief Complaint: Headache Stated Complaint: HEAD ACHE Time Seen by Provider: 05/28/18 10:42 Mode of Arrival: Wheelchair Information source: Patient, Relative TRAVEL OUTSIDE OF THE [place] IN LAST 30 DAYS: No - HPI Patient complains to provider of: Headache Patient reports: Other - FELL ONE DAY LAST WEEK. No: Brain neoplasm, Congenital anomally, Frequent migraines, Hx chronic headaches, Occasional migraines, Prior CVA, Prior neurologic eval, Prior hemorrhage, Prior TBI, [employer] Shunt Onset: Other - 3 DAYS Onset was: Gradual Timing: Still present - INTERMITTENT Quality of pain: Dull, Other - "SORENESS" IN SCALP Context: Other - FELL BUT DID NOT STRIKE HEAD. denies: CO exposure, Head injury , Insect bite, Meningitis exposure, Tick bite Associated symptoms: None. denies: Confusion, Dizzy, Double/blurred vision, Fainting, Nausea/vomiting, Photophobia, Speech problems, Stiff neck Similar symptoms previously: No Recently seen / treated by doctor: No - Related Data Allergies/Adverse Reactions: codeine [Codeine] Allergy (Verified 09/28/17 11:53) levofloxacin [From Levaquin] Allergy (Verified 09/28/17 11:53) Past Medical History - General Information source: Patient, Relative - Social History Smoking Status: Former Smoker Cigarette use (# per day): No Chew tobacco use (# tins/day): No Frequency of alcohol use: None Drug Abuse: None Family History: Other - heart disease. denies: Reviewed & Not Pertinent - heart disease Patient has suicidal ideation: No Patient has homicidal ideation: No - Past Medical History Cardiac Medical History: Reports: Hx Coronary Artery Disease, Hx Heart Attack, Hx Hypercholesterolemia, Hx Hypertension Pulmonary Medical History: Reports: None Neurological Medical History: Reports: None. Denies: Hx Cerebrovascular Accident, Hx Migraine Endocrine Medical History: Reports: Hx Diabetes Mellitus Type 2, Hx Hypothyroidism Renal/ Medical History: Reports: None. Denies: Hx Peritoneal Dialysis Malignancy Medical History: Reports: None GI Medical History: Reports: Hx Gastroesophageal Reflux Disease Musculoskeltal Medical History: Reports None Psychiatric Medical History: Reports: Hx Dementia - MILD Denies: Hx Depression Traumatic Medical History: Reports: None Past Surgical History: Reports: Hx Appendectomy, Hx Cardiac Catheterization, Hx Cardiac Surgery - stents x2, Hx Cholecystectomy, Hx Hysterectomy, Other - stent placement - Immunizations Hx Diphtheria, Pertussis, Tetanus Vaccination: Yes Hx Pneumococcal Vaccination: 11/27/08 Review of Systems - Review of Systems Constitutional: No symptoms reported EENT: No symptoms reported Cardiovascular: No symptoms reported Respiratory: No symptoms reported Gastrointestinal: No symptoms reported Genitourinary: No symptoms reported Female Genitourinary: Post menopausal Musculoskeletal: No symptoms reported Skin: See HPI Neurological/Psychological: See HPI Physical Exam - Vital signs Vitals: Temp Pulse Resp BP 98.7 F 72 20 158/73 H 05/28/18 10:10 05/28/18 10:10 05/28/18 10:10 05/28/18 10:10 Interpretation: Hypertensive. No: Tachycardic, Tachypneic - General General appearance: Appears well, Alert In distress: None - HEENT Head: Normocephalic, Tenderness - L. POST-AURICULAR AND BILAT. TEMPORAL Eyes: Normal Conjunctiva: Normal Ears: Normal Nasal: Normal Mouth/Lips: Normal Mucous membranes: Normal Pharynx: Normal Neck: Normal - Respiratory Respiratory status: No respiratory distress - Cardiovascular Rhythm: Regular - Abdominal Inspection: Normal Distension: No distension - Extremities General upper extremity: Normal inspection General lower extremity: Normal inspection. No: Edema - Neurological Neuro grossly intact: Yes Cognition: Normal Orientation: AAOx4 - Psychological Associated symptoms: Normal affect, Normal mood - Skin Skin Temperature: Warm Skin Moisture: Dry Skin Color: Normal Skin Turgor: Elastic Course - Re-evaluation Re-evalutation: 05/28/18 13:58 Patient states headache is much improved. Results of laboratory and imaging studies discussed with patient and daughter. - Vital Signs Vital signs: Temp Pulse Resp BP Pulse Ox 98.7 F 72 20 158/73 H 05/28/18 10:10 05/28/18 10:10 05/28/18 10:10 05/28/18 10:10 - Laboratory Result Diagrams: 05/28/18 12:44 05/28/18 12:44 Laboratory results interpreted by me: 05/28/18 12:44 Carbon Dioxide 31 H BUN 21 H Est GFR (Non-Af Amer) 54 L Glucose 182 H Discharge - Discharge Clinical Impression: Muscle tension headache Condition: Stable Disposition: HOME, SELF-CARE Instructions: Tension Headache ([facility]), Anti-Inflammatory Medication ([facility]), Muscle Relaxers ([facility]) Additional Instructions: TAKE ADVIL OR ALEVE FOR PAIN NEEDED. TAKE DIAZEPAM (VALIUM) FOR MUSCLE RELAXATION NEEDED. CONTINUE YOUR OTHER MEDICATIONS USUAL. FOLLOW UP WITH DR. Salvador APPOINTED. RETURN TO E.R. IF PROBLEMS, ANY TIME. Prescriptions: Diazepam [Valium 5 Mg Tablet] 2 mg PO Q8HP PRN #10 tablet PRN Reason: FOR MUSCLE RELAXATION Referrals: HELENE BOWEN MD [Primary Care Provider] - Follow up as needed
--- NOTE | 2018-05-28 11:59 | RADIOLOGY REPORT (SQ) ---
EXAM DESCRIPTION: CT HEAD WITHOUT COMPLETED DATE/TIME: 05/28/2018 11:38 am REASON FOR STUDY: headaceh COMPARISON: 2017 TECHNIQUE: Axial images acquired through the brain without intravenous contrast. Images reviewed wi th bone, brain and subdural windows. Additional sagittal and coronal reconstructions were generated. Images stored on PACS. All CT scanners at this facility use dose modulation, iterative reconstruction, and/or weight based d osing when appropriate to reduce radiation dose to as low as reasonably achievable (ALARA). [facility]: Dose Right [facility]: CareDose [facility]: Dose Right [facility]: Teradose 4D [facility]: [employer] RADIATION DOSE: CT Rad equipment meets quality standard of care and radiation dose reduction techniq ues were employed. CTDIvol: 53.2 mGy. DLP: 1124 mGy-cm.mGy. LIMITATIONS: None. FINDINGS: VENTRICLES: Prominent. CEREBRUM: No masses. No hemorrhage. No midline shift. Areas of low density in the white matter mos t likely due to chronic micro-vascular ischemic change. No evidence for acute infarction. CEREBELLUM: No masses. No hemorrhage. No alteration of density. No evidence for acute infarction. EXTRAAXIAL SPACES: Age-related involutional change. No fluid collections. No masses. ORBITS AND GLOBE: No intra- or extraconal masses. Normal contour of globe without masses. CALVARIUM: No fracture. PARANASAL SINUSES: No fluid or mucosal thickening. SOFT TISSUES: No mass or hematoma. OTHER: No other significant finding. IMPRESSION: CHRONIC CHANGES OF ATROPHY AND MICROVASCULAR ISCHEMIA. NO ACUTE PROCESS. EVIDENCE OF ACUTE STROKE: NO. TECHNICAL DOCUMENTATION: JOB ID: [id number] Quality ID # [id number]: Final reports with documentation of one or more dose reduction techniques (e.g., Au tomated exposure control, adjustment of the mA and/or kV according to patient size, use of iterative reconstruction technique) 2010 [employer]- All Rights Reserved Reading location - IP/workstation name: [email or web address]
--- NOTE | 2018-05-28 12:00 | RADIOLOGY REPORT (SQ) ---
EXAM DESCRIPTION: CT CERVICAL SPINE WITHOUT COMPLETED DATE/TIME: 05/28/2018 11:38 am REASON FOR STUDY: headaceh COMPARISON: None. TECHNIQUE: Axial images acquired through the cervical spine without intravenous contrast. Images re viewed with lung, soft tissue and bone windows. Reconstructed coronal and sagittal MPR images review ed. Images stored on PACS. All CT scanners at this facility use dose modulation, iterative reconstruction, and/or weight based d osing when appropriate to reduce radiation dose to as low as reasonably achievable (ALARA). [facility]: Dose Right [facility]: CareDose [facility]: Dose Right [facility]: Teradose 4D [facility]: [employer] RADIATION DOSE: CT Rad equipment meets quality standard of care and radiation dose reduction techniq ues were employed. CTDIvol: 16.6 mGy. DLP: 287 mGy-cm. mGy. LIMITATIONS: None. FINDINGS: ALIGNMENT: Anatomic. MINERALIZATION: Normal. VERTEBRAL BODIES: No fractures or dislocation. DISCS: Multilevel disc space narrowing with osteophytes. FACETS, LATERAL MASSES, POSTERIOR ELEMENTS: Facet arthropathy. No fractures. No dislocation. No ac vijay findings. HARDWARE: None in the spine. VISUALIZED RIBS: No fractures. LUNG APICES AND SOFT TISSUES: No significant or acute findings. OTHER: No other significant finding. IMPRESSION: CHRONIC DEGENERATIVE CHANGES. NO ACUTE FINDINGS. TECHNICAL DOCUMENTATION: JOB ID: [id number] Quality ID # [id number]: Final reports with documentation of one or more dose reduction techniques (e.g., Au tomated exposure control, adjustment of the mA and/or kV according to patient size, use of iterative reconstruction technique) 2010 [employer]- All Rights Reserved Reading location - IP/workstation name: [email or web address]
[2018-05-28] MEDS ORDERED: DIAZEPAM 5 MG TABLET PO ONE (12:04)
[2018-05-28 12:59] LABS: ABSOLUTE EOSINOPHILS # (AUTO) 0.3 10^3/uL (0.0-0.6); ABSOLUTE LYMPHOCYTES (AUTO) 1.4 10^3/uL (0.5-4.7); ABSOLUTE MONOCYTES (AUTO) 0.4 10^3/uL (0.1-1.4); ABSOLUTE NEUT (AUTO) 3.9 10^3/uL (1.7-8.2); BASOPHILS % (AUTO) 0.3 % (0-2); EOSINOPHILS % (AUTO) 4.9 % (0-6); HEMATOCRIT 39.2 % (36.0-47.0); HEMOGLOBIN 13.6 g/dL (12.0-15.5); LYMPHOCYTES % (AUTO) 23.5 % (13-45); MEAN CORPUSCULAR HEMOGLOBIN 31.9 pg (27.0-33.4); MEAN CORPUSCULAR HGB CONC 34.7 g/dL (32.0-36.0); MEAN CORPUSCULAR VOLUME 92 fl (80-97); MONOCYTES % (AUTO) 6.1 % (3-13); PLATELET COUNT 162 10^3/uL (150-450); RED BLOOD COUNT 4.26 10^6/uL (3.72-5.28); SEGMENTED NEUTROPHILS % (AUTO) 65.2 % (42-78); TOTAL CELLS COUNTED % (AUTO) 100 %
[2018-05-28 13:16] LABS: ALANINE AMINOTRANSFERASE 22 U/L (9-52); ALBUMIN 4.1 g/dL (3.5-5.0); ALKALINE PHOSPHATASE 75 U/L (38-126); ANION GAP 11 (5-19); ASPARTATE AMINO TRANSFERASE 17 U/L (14-36); BILIRUBIN,DIRECT 0.4 mg/dL (0.0-0.4); BILIRUBIN,TOTAL 0.8 mg/dL (0.2-1.3); BLOOD UREA NITROGEN 21 mg/dL (7-20); CALCIUM 9.5 mg/dL (8.4-10.2); CARBON DIOXIDE 31 mmol/L (22-30); CHLORIDE 100 mmol/L (98-107); GLUCOSE 182 mg/dL (75-110); POTASSIUM 4.3 mmol/L (3.6-5.0); SODIUM 141.5 mmol/L (137-145)
[2018-05-28 13:35] LABS: ERYTHROCYTE SEDIMENTATION RATE 16 mm/hr (0-30)
[2018-05-28 14:13] VITALS: BP 150/69
== END 2018-05-28 14:13 | disposition home or self-care (01) ==
LOC: ER 10:04
DX: G44.209 Tension-type headache, unspecified, not intractable (principal); I25.10 Atherosclerotic heart disease of native coronary artery without angina pectoris; I25.2 Old myocardial infarction; I10 Essential (primary) hypertension; E11.9 Type 2 diabetes mellitus without complications; Z95.5 Presence of coronary angioplasty implant and graft; Z88.5 Allergy status to narcotic agent; Z88.1 Allergy status to other antibiotic agents; Z87.891 Personal history of nicotine dependence
CPT/HCPCS: 99284; 36415; 85025; 85652; 80053; 70450; 72125; A9270 ×2

== ENCOUNTER 2019-01-04 09:11 | Emergency (ER) | payer MEDICARE ==
--- NOTE | 2019-01-04 10:51 | ER Document Report ---
ED Medical Screen (RME) - General Chief Complaint: Urinary Incontinence Stated Complaint: LOST CONTROL OF BLADDER/COUGH Time Seen by Provider: 01/04/19 10:30 Primary Care Provider: HELENE BOWEN MD [Primary Care Provider] - Follow up as needed Mode of Arrival: Wheelchair Information source: Relative Notes: 83-year-old female with a history of dementia brought to the emergency department by her daughter for urinary incontinence. Daughter states that last night she is been having a lot of urinary incontinence with some blood in the urine. She has a history of previous urinary tract infections. The last one was a month ago and treated with Cipro. She states that she is acting more confused today. Typically only orientated to self. Daughter notes that there is a history of sick contacts with the flu. Patient has been having a cough. She denies any fever, shortness of breath, chest pain, vomiting, diarrhea, constipation. I have greeted and performed a rapid initial assessment of this patient. A comprehensive ED assessment and evaluation of the patient, analysis of test results and completion of the medical decision making process will be conducted by additional ED providers. PHYSICAL EXAMINATION: GENERAL: No acute distress. HEAD: Atraumatic, Orientated to person. EYES: Pupils equal round extraocular movements intact, conjunctiva are normal. ENT: Nares patent NECK: Normal range of motion LUNGS: No respiratory distress Musculoskeletal: Normal range of motion NEUROLOGICAL: Normal speech. TRAVEL OUTSIDE OF THE [place] IN LAST 30 DAYS: No - Related Data Allergies/Adverse Reactions: codeine [Codeine] Allergy (Verified 01/04/19 09:13) levofloxacin [From Levaquin] Allergy (Verified 01/04/19 09:13) Past Medical History - Social History Frequency of alcohol use: None Drug Abuse: None - Past Medical History Cardiac Medical History: Reports: Hx Coronary Artery Disease, Hx Heart Attack, Hx Hypercholesterolemia, Hx Hypertension Neurological Medical History: Denies: Hx Cerebrovascular Accident, Hx Migraine Endocrine Medical History: Reports: Hx Diabetes Mellitus Type 2, Hx Hypothyroidism Renal/ Medical History: Denies: Hx Peritoneal Dialysis GI Medical History: Reports: Hx Gastroesophageal Reflux Disease Psychiatric Medical History: Reports: Hx Dementia - MILD Denies: Hx Depression Past Surgical History: Reports: Hx Appendectomy, Hx Cardiac Catheterization, Hx Cardiac Surgery - stents x2, Hx Cholecystectomy, Hx Hysterectomy, Other - stent placement - Immunizations Hx Diphtheria, Pertussis, Tetanus Vaccination: Yes History of Influenza Vaccine for 08/2017 - 01/2018 Season: No Physical Exam - Vital signs Vitals: Temp Pulse Resp BP Pulse Ox 99.2 F 96 16 162/67 H 99 01/04/19 09:17 01/04/19 09:17 01/04/19 09:17 01/04/19 09:17 01/04/19 09:17 Course - Vital Signs Vital signs: Temp Pulse Resp BP Pulse Ox 99.2 F 96 16 162/67 H 99 01/04/19 09:17 01/04/19 09:17 01/04/19 09:17 01/04/19 09:17 01/04/19 09:17 Doctor's Discharge - Discharge Referrals: HELENE BOWEN MD [Primary Care Provider] - Follow up as needed
[2019-01-04 11:54] LABS: ABSOLUTE EOSINOPHILS # (AUTO) 0.1 10^3/uL (0.0-0.6); ABSOLUTE LYMPHOCYTES (AUTO) 0.9 10^3/uL (0.5-4.7); ABSOLUTE MONOCYTES (AUTO) 0.4 10^3/uL (0.1-1.4); ABSOLUTE NEUT (AUTO) 3.8 10^3/uL (1.7-8.2); BASOPHILS % (AUTO) 0.3 % (0-2); HEMATOCRIT 40.2 % (36.0-47.0); HEMOGLOBIN 14.2 g/dL (12.0-15.5); LYMPHOCYTES % (AUTO) 16.5 % (13-45); MEAN CORPUSCULAR HEMOGLOBIN 32.8 pg (27.0-33.4); MEAN CORPUSCULAR HGB CONC 35.2 g/dL (32.0-36.0); MEAN CORPUSCULAR VOLUME 93 fl (80-97); MONOCYTES % (AUTO) 8.5 % (3-13); PLATELET COUNT 171 10^3/uL (150-450); RED BLOOD COUNT 4.31 10^6/uL (3.72-5.28); RED CELL DISTRIBUTION WIDTH 13.1 % (11.5-14.0); SEGMENTED NEUTROPHILS % (AUTO) 72.7 % (42-78); TOTAL CELLS COUNTED % (AUTO) 100 %; WHITE BLOOD COUNT 5.3 10^3/uL (4.0-10.5)
--- NOTE | 2019-01-04 12:04 | RADIOLOGY REPORT (SQ) ---
EXAM DESCRIPTION: CHEST SINGLE VIEW COMPLETED DATE/TIME: 01/04/2019 11:53 am REASON FOR STUDY: cough COMPARISON: 12/12/2016 EXAM PARAMETERS: NUMBER OF VIEWS: One view. TECHNIQUE: Single frontal radiographic view of the chest acquired. RADIATION DOSE: NA LIMITATIONS: None. FINDINGS: LUNGS AND PLEURA: No opacities, masses or pneumothorax. No pleural effusion. MEDIASTINUM AND HILAR STRUCTURES: No masses. Contour normal. HEART AND VASCULAR STRUCTURES: Heart normal in size. Normal vasculature. BONES: No acute findings. HARDWARE: None in the chest. OTHER: No other significant finding. IMPRESSION: NO ACUTE RADIOGRAPHIC FINDING IN THE CHEST. TECHNICAL DOCUMENTATION: JOB ID: [id number] [employer]- All Rights Reserved Reading location - IP/workstation name: [email or web address]
[2019-01-04 12:12] LABS: A TYPE INFLUENZA AG NEGATIVE (NEGATIVE); B INFLUENZA AG NEGATIVE (NEGATIVE)
[2019-01-04 12:14] LABS: ALANINE AMINOTRANSFERASE 27 U/L (9-52); ALBUMIN 4.7 g/dL (3.5-5.0); ALKALINE PHOSPHATASE 89 U/L (38-126); ANION GAP 13 (5-19); ASPARTATE AMINO TRANSFERASE 27 U/L (14-36); BILIRUBIN,DIRECT 0.4 mg/dL (0.0-0.4); BILIRUBIN,TOTAL 0.8 mg/dL (0.2-1.3); BLOOD UREA NITROGEN 19 mg/dL (7-20); CALCIUM 9.8 mg/dL (8.4-10.2); CARBON DIOXIDE 30 mmol/L (22-30); CHLORIDE 94 mmol/L (98-107); GLUCOSE 270 mg/dL (75-110); POTASSIUM 4.8 mmol/L (3.6-5.0); SODIUM 136.7 mmol/L (137-145); TOTAL PROTEIN 7.6 g/dL (6.3-8.2)
[2019-01-04 15:33] LABS: APPEARANCE,URINE TURBID; BILIRUBIN,URINE NEGATIVE (NEGATIVE); COLOR,URINE AMBER; GLUCOSE, URINE 150 mg/dL (NEGATIVE); KETONES,URINE TRACE mg/dL (NEGATIVE); LEUKOCYTE ESTERASE,URINE LARGE (NEGATIVE); NITRITE,URINE NEGATIVE (NEGATIVE); PROTEIN,URINE 100 mg/dL (NEGATIVE); URINE SPECIFIC GRAVITY 1.013
[2019-01-04] MEDS ORDERED: CEFTRIAXONE 1 GM/D5W RTU 1 GM/50 ML RTUPB IV ONE (17:15)
[2019-01-04] MEDS ORDERED: NORMAL SALINE 1000 ML 1,000 ML IV ONE (17:29)
[2019-01-04] MEDS ORDERED: ACETAMINOPHEN 325 MG TABLET PO ONE (17:36)
[2019-01-04] MEDS ORDERED: FLUCONAZOLE 100 MG TABLET PO ONE (17:37)
--- NOTE | 2019-01-04 17:38 | ER Document Report ---
ED General - General Chief Complaint: Urinary Incontinence Stated Complaint: LOST CONTROL OF BLADDER/COUGH Time Seen by Provider: 01/04/19 10:30 Primary Care Provider: HELENE BOWEN MD [Primary Care Provider] - Follow up in 3-5 days Mode of Arrival: Wheelchair Information source: Patient, Relative, [facility] Records Notes: 83-year-old female with coronary artery disease, dementia, hyperlipidemia, hypertension, type 2 diabetes and history of recurrent urinary tract infections presents with her daughter who is concerned for urinary incontinence, increased confusion and a cough. Daughter states that cough started 1 day prior to arrival. Patient's confusion is normal when she has a urinary tract infection. She reports her last infection approximately 1 month ago which was treated with Cipro. Patient has not had any fever, vomiting, diarrhea, chest pain, shortness of breath. Patient is alert and oriented x1 at baseline. Patient has no physical complaints upon my exam. She is alert, awake and answering questions appropriately. TRAVEL OUTSIDE OF THE [place] IN LAST 30 DAYS: No - HPI Onset: Yesterday Onset/Duration: Gradual Quality of pain: No pain Severity: None Associated symptoms: Chills. denies: Body/muscle aches, Chest pain, Diarrhea, Fever, Headache, Nausea, Vomiting, Shortness of breath, Sweating Exacerbated by: Denies Relieved by: Denies Similar symptoms previously: Yes Recently seen / treated by doctor: No - Related Data Allergies/Adverse Reactions: codeine [Codeine] Allergy (Verified 01/04/19 09:13) levofloxacin [From Levaquin] Allergy (Verified 01/04/19 09:13) Past Medical History - General Information source: Patient, Relative, [facility] Records - Social History Smoking Status: Former Smoker Frequency of alcohol use: None Drug Abuse: None Lives with: Family Family History: Other - heart disease. denies: Reviewed & Not Pertinent - heart disease Patient has suicidal ideation: No Patient has homicidal ideation: No - Past Medical History Cardiac Medical History: Reports: Hx Coronary Artery Disease, Hx Heart Attack, Hx Hypercholesterolemia, Hx Hypertension Neurological Medical History: Denies: Hx Cerebrovascular Accident, Hx Migraine Endocrine Medical History: Reports: Hx Diabetes Mellitus Type 2, Hx Hypothyroidism Renal/ Medical History: Denies: Hx Peritoneal Dialysis GI Medical History: Reports: Hx Gastroesophageal Reflux Disease Psychiatric Medical History: Reports: Hx Dementia - MILD Denies: Hx Depression Past Surgical History: Reports: Hx Appendectomy, Hx Cardiac Catheterization, Hx Cardiac Surgery - stents x2, Hx Cholecystectomy, Hx Hysterectomy, Other - stent placement - Immunizations Hx Diphtheria, Pertussis, Tetanus Vaccination: Yes Hx Pneumococcal Vaccination: 11/27/08 Review of Systems - Review of Systems Notes: REVIEW OF SYSTEMS: CONSTITUTIONAL : Denies fever, chills, or sweats. Denies recent illness. Denies weight loss, recent hospitalizations. EENT: Denies visual changes, eye pain. Denies sore throat, oral lesions, difficulty swallowing. CARDIOVASCULAR: Denies chest pain. Denies palpitations. Denies lower extremity edema. RESPIRATORY: Denies shortness of breath, wheezing. GASTROINTESTINAL: Denies abdominal pain or distention. Denies nausea, vomiting, or diarrhea. Denies blood in vomitus, stools, or per rectum. Denies black, tarry stools. Denies constipation. GENITOURINARY: Denies difficulty urinating, painful urination, vaginal discharge. MUSCULOSKELETAL: Denies back or neck pain or stiffness. Denies joint pain or swelling. SKIN: Denies rash, lesions or sores. HEMATOLOGIC : Denies easy bruising or bleeding. LYMPHATIC: Denies swollen glands. NEUROLOGICAL: Denies loss of consciousness. Denies dizziness or lightheadedness. Denies headache. Denies weakness or paralysis. Denies problems difficulty with ambulation, slurred speech. Denies sensory loss, numbness, or tingling. Denies seizures. PSYCHIATRIC: Denies anxiety or stress. Denies depression, suicidal ideation, or homicidal ideation. Denies visual or auditory hallucinations. Physical Exam - Vital signs Vitals: Temp Pulse Resp BP Pulse Ox 99.2 F 96 16 162/67 H 99 01/04/19 09:17 01/04/19 09:17 01/04/19 09:17 01/04/19 09:17 01/04/19 09:17 - Notes Notes: PHYSICAL EXAMINATION: GENERAL: Well-appearing, well-nourished and in no acute distress. HEAD: Atraumatic, normocephalic. EYES: Pupils equal round and reactive to light, extraocular movements intact, conjunctiva are normal. ENT: Nares patent, oropharynx clear without exudates. Dry mucous membranes. NECK: Normal range of motion, supple without lymphadenopathy LUNGS: Breath sounds clear to auscultation bilaterally and equal. No wheezes rales or rhonchi. HEART: Regular rate and rhythm without murmurs ABDOMEN: Soft, nontender, nondistended abdomen. No guarding, no rebound. No masses appreciated. Female : deferred Musculoskeletal: Normal range of motion, no pitting or edema. No cyanosis. NEUROLOGICAL: Cranial nerves grossly intact. Normal speech, normal gait. Normal sensory, motor exams PSYCH: Normal mood, normal affect. SKIN: Warm, Dry, normal turgor, no rashes or lesions noted. Course - Re-evaluation Re-evalutation: 01/04/19 17:36 Laboratory 01/04/19 01/04/19 01/04/19 11:08 11:08 11:08 WBC 5.3 RBC 4.31 Hgb 14.2 Hct 40.2 MCV 93 MCH 32.8 MCHC 35.2 RDW 13.1 Plt Count 171 Seg Neutrophils % 72.7 Lymphocytes % 16.5 Monocytes % 8.5 Eosinophils % 2.0 Basophils % 0.3 Absolute Neutrophils 3.8 Absolute Lymphocytes 0.9 Absolute Monocytes 0.4 Absolute Eosinophils 0.1 Absolute Basophils 0.0 Sodium 136.7 L Potassium 4.8 Chloride 94 L Carbon Dioxide 30 Anion Gap 13 BUN 19 Creatinine 0.89 Est GFR ( Amer) > 60 Est GFR (Non-Af Amer) > 60 Glucose 270 H Calcium 9.8 Total Bilirubin 0.8 Direct Bilirubin 0.4 Neonat Total Bilirubin Not Reportable Neonat Direct Bilirubin Not Reportable Neonat Indirect Bili Not Reportable AST 27 ALT 27 Alkaline Phosphatase 89 Total Protein 7.6 Albumin 4.7 Urine Color Urine Appearance Urine pH Ur Specific [place] Urine Protein Urine Glucose (UA) Urine Ketones Urine Blood Urine Nitrite Urine Bilirubin Urine Urobilinogen Ur Leukocyte Esterase Urine WBC (Auto) Urine RBC (Auto) Urine Bacteria (Auto) Urine WBC Clumps Squamous Epi Cells Auto Urine Yeast (Budding) Urine Ascorbic Acid Influenza A (Rapid) NEGATIVE Influenza B (Rapid) NEGATIVE 01/04/19 14:40 WBC RBC Hgb Hct MCV MCH MCHC RDW Plt Count Seg Neutrophils % Lymphocytes % Monocytes % Eosinophils % Basophils % Absolute Neutrophils Absolute Lymphocytes Absolute Monocytes Absolute Eosinophils Absolute Basophils Sodium Potassium Chloride Carbon Dioxide Anion Gap BUN Creatinine Est GFR ( Amer) Est GFR (Non-Af Amer) Glucose Calcium Total Bilirubin Direct Bilirubin Neonat Total Bilirubin Neonat Direct Bilirubin Neonat Indirect Bili AST ALT Alkaline Phosphatase Total Protein Albumin Urine Color MARIA ESTHER Urine Appearance TURBID Urine pH 5.0 Ur Specific [place] 1.013 Urine Protein 100 H Urine Glucose (UA) 150 H Urine Ketones TRACE H Urine Blood SMALL H Urine Nitrite NEGATIVE Urine Bilirubin NEGATIVE Urine Urobilinogen 4.0 H Ur Leukocyte Esterase LARGE H Urine WBC (Auto) >182 Urine RBC (Auto) 3 Urine Bacteria (Auto) 3+ Urine WBC Clumps MANY Squamous Epi Cells Auto 2 Urine Yeast (Budding) PRESENT Urine Ascorbic Acid 40 H Influenza A (Rapid) Influenza B (Rapid) Chest X-Ray 01/04/19 10:47 IMPRESSION: NO ACUTE RADIOGRAPHIC FINDING IN THE CHEST. Temp Pulse Resp BP Pulse Ox 99.1 F 94 18 149/74 H 97 01/04/19 16:55 01/04/19 17:02 01/04/19 17:02 01/04/19 17:02 01/04/19 17:02 01/04/19 17:37 83-year-old female presents with urinary incontinence and a cough. Vital signs reviewed and within normal limits upon arrival. Patient does not appear toxic or dehydrated. She is in no acute distress. Urinalysis consistent with urinary tract infection and shows budding yeast. Patient was administered ceftriaxone, IV fluids and Diflucan. Patient will be discharged home with Keflex. Patient presents with symptoms consistent with an acute cystitis. Vitals wnl. No history of fever, flank pain, or constitution symptoms to suggest ascending infection at this time. Patient is well in appearance, tolerating oral intake without diff iculty. No focal abdominal tenderness to suggest acute appendicitis, biliary pathology, acute pancreatitis. Patient will be started on antibiotics at this time. A culture has been sent. They will be discharged with return precautions and follow-up recommendations. 01/04/19 22:13 - Vital Signs Vital signs: Temp Pulse Resp BP Pulse Ox 99.8 F 50 L 16 131/49 H 94 01/04/19 19:45 01/04/19 19:45 01/04/19 19:45 01/04/19 19:45 01/04/19 19:45 - Laboratory Result Diagrams: 01/04/19 11:08 01/04/19 11:08 Laboratory results interpreted by me: 01/04/19 01/04/19 11:08 14:40 Sodium 136.7 L Chloride 94 L Glucose 270 H Urine Protein 100 H Urine Glucose (UA) 150 H Urine Ketones TRACE H Urine Blood SMALL H Urine Urobilinogen 4.0 H Ur Leukocyte Esterase LARGE H Urine Ascorbic Acid 40 H - Diagnostic Test Radiology reviewed: Image reviewed, Reports reviewed Discharge - Discharge Clinical Impression: Elevated blood pressure reading, Dehydration UTI (urinary tract infection) Qualifiers: Urinary tract infection type: site unspecified Hematuria presence: with hematuria Qualified Code(s): N39.0 - Urinary tract infection, site not specified Upper respiratory infection Qualifiers: URI type: unspecified URI Qualified Code(s): J06.9 - Acute upper respiratory infection, unspecified Diabetes mellitus Qualifiers: Diabetes mellitus type: type 2 Diabetes mellitus assisted insulin use: without remote computer terminal operator use Diabetes mellitus complication status: without complication Qualified Code(s): E11.9 - Type 2 diabetes mellitus without complications Condition: Good Disposition: HOME, SELF-CARE Instructions: Dehydration ([facility]), Upper Respiratory Illness ([facility]), Urinary Tract Infection ([facility]) Additional Instructions: Your urine shows findings consistent with a urinary tract infection. Please take all the antibiotics as directed even if your symptoms have improved. Please follow-up with your primary care physician as needed. Return to emergency room if you develop fever >101F, persistent vomiting, become lethar gic, have severe pain in your sides, or any other symptoms that are concerning to you. Follow up with your [id number] hours for further care or return to the ED IMMEDIATELY if symptoms worsen or you have any concerns. If you cannot afford to follow up with your primary care physician a list of low cost clinics have been provided at the end of your discharge papers as well. Most prescribed medications have multiple side effects. The safest thing to do is when filling your prescription speak to your pharmacist regarding possible interactions with your normal home medications and over the counter medications such as Ibuprofen, Tylenol, Benadryl. If you experience any symptoms that cause you discomfort or concern you should discontinue the medication immediately and return to the emergency room or call your primary care physician. Prescriptions: Cephalexin Monohydrate [Keflex 500 mg Capsule] 500 mg PO BID 7 Days #14 capsule Fluconazole [Diflucan 100 mg Tablet] 100 mg PO ONCE PRN 1 Days #1 tablet PRN Reason: Referrals: HELENE BOWEN MD [Primary Care Provider] - Follow up in 3-5 days
[2019-01-04 20:07] VITALS: BP 131/49
== END 2019-01-04 20:05 | disposition home or self-care (01) ==
LOC: ER 09:11
DX: N39.0 Urinary tract infection, site not specified (principal); R31.9 Hematuria, unspecified; R32 Unspecified urinary incontinence; J06.9 Acute upper respiratory infection, unspecified; R05 Cough; E86.0 Dehydration; E11.9 Type 2 diabetes mellitus without complications; I25.10 Atherosclerotic heart disease of native coronary artery without angina pectoris; I10 Essential (primary) hypertension; I25.2 Old myocardial infarction; R41.0 Disorientation, unspecified; Z88.5 Allergy status to narcotic agent; Z87.891 Personal history of nicotine dependence
CPT/HCPCS: 36415; 87086; 85025; 80053; 81001; 87804; 71045; A9270 ×2; J7030; J0696